=== PATIENT | female | born 1945 | race Caucasian/White ===

== ENCOUNTER 2017-09-03 09:37 | Emergency (ER) | payer OTHER ==
[~2017-09-03] VITALS: Ht 170.2 cm; Wt 73.5 kg
[~2017-09-03 09:37] MED LIST: AMLO2.5T PO; FLUT1INH INH; LEVO-86 PO; LOSA50TA PO; MECL12.574 PO; OMEP40CA2 PO; ONDA8TAB7 PO; SUMA25TA2 PO; TIZA2TAB PO
[2017-09-03 09:41] VITALS: BP 109/65; PULSE 104; RESP 20; TEMP 97.7; O2SAT 97
[2017-09-03 10:07] VITALS: BP 130/72; PULSE 99; RESP 20; O2SAT 96
[2017-09-03] MEDS ORDERED: SODIUM CHLOR 0.9% 1000 ML INJ 1,000 ML IV ONE (10:45)
--- NOTE | 2017-09-03 10:51 | PD ---
HPI Chief Complaint: Abnormal Results Time Seen by Provider: 10:25 Travel History International Travel<30 days: No Contact w/Intl Traveler<30days: No Traveled to known affect area: No History of Present Illness HPI This patient woke up this morning feeling like "she was in a trance." She felt a bit confused. It has improved. She takes no sedating medication. She is getting chemotherapy for pancreatic carcinoma. There is no known brain metastases. She denies headache. No fever. She went to the oncologist office today and received a shot to help her white count which has been low after chemo. The nurse reported her blood pressure was 88/62 and told her to go to the hospital. Patient has a blood pressure 130/72 on arrival here. No alleviating factors. No exacerbating factors. Duration 1 day PFSH Past Medical History Arthritis: Yes Asthma: No Autoimmune Disease: No Blood Disorders: No Anxiety: Yes Depression: No Heart Rhythm Problems: No Cancer: No Cardiovascular Problems: Yes (htn on meds) High Cholesterol: No Chemotherapy: Yes (PANCREATIC) Chest Pain: No Congestive Heart Failure: No COPD: Yes Cerebrovascular Accident: No Diabetes: No Diminished Hearing: No Diverticulitis: Yes Deep Vein Thrombosis: Yes (RIGHT AXILLARY BLOOD CLOT) Endocrine: Yes (GRAVES DISEASE) Gastrointestinal Disorders: Yes (HX IBS, ULCERS, REFLUX, GERD) GERD: Yes (WITH HX OF IBS) Genitourinary: No Headaches: Yes Hepatitis: No Hiatal Hernia: Yes Hypertension: Yes Immune Disorder: No Implanted Vascular Access Dvce: Yes (RIGHT CHEST WALL) Kidney Stones: No Medical other: Yes (ESOPHAGEAL DILITATION FOR STRICTURE) Musculoskeletal: Yes (NECK AND BACK) Neurologic: Yes (SPINAL FUSION, NEUROPATHY, NEURO MODULATOR IMPLANT) Reproductive: Yes ( POSS FIBROID TUMORS AND RIGHT OVARIAN CYST) Respiratory: Yes (copd) Migraines: Yes Radiation Therapy: No Renal Failure: No Sickle Cell Disease: No Sleep Apnea: No Thyroid Disease: Yes Ulcer: Yes (HX OF STOMACH ULCERS) Tetanus Vaccination: > 5 Years Influenza Vaccination: Yes ?: Not LMP: tubal Menopausal: Yes Ovarian Cysts: Yes Tubal Ligation: Yes Past Surgical History Abdominal Surgery: Yes (CHOLECYSTECTOMY, APPENDECTOMY) AICD: No Appendectomy: Yes Arteriovenous Shunt: No Body Medical Devices: LUMBAR SPINE SCREWS AND RODS, NEUROMODULATOR IMPLANT Cardiac Surgery: No Cholecystectomy: Yes Ear Surgery: No Endocrine Surgery: No Eye Surgery: Yes (DECOMPRESSION SURGERY R EYE, STRABISMUS SURGERY X 3) Genitourinary Surgery: Yes (3 polyps removed september 2013) Gynecologic Surgery: Yes Insulin Pump: No Joint Replacement: Yes (RIGHT HIP/RIGHT KNEE) Oral Surgery: Yes (TONSILLECTOMY) Pacemaker: No Thoracic Surgery: No Tonsillectomy: Yes Other Surgery: Yes (RIGHT SHOULDER, SPINE-FUSION) Social History Alcohol Use: No Tobacco Use: No (QUIT 2004. SMOKED 1 PACK CIGS A DAY) Substance Use: No Allergies-Medications (Allergen,Severity, Reaction): Coded Allergies: adhesive (Verified Allergy, Severe, RASH, 09/03/17) codeine (Verified Allergy, Severe, VIOLENT HEADACHE; NAUSEA & VOMITTING, ) STATES ON 07/15/13, "ALL PAIN MEDS EXCEPT MORPHINE CAUSE SEVERE NAUSEA AND VOMITING" hydrocodone (Verified Allergy, Unknown, NAUSEA, DIZZY, WEAKNESS, 09/03/17) tramadol (Verified Allergy, Unknown, HEADACHE, NAUSEA, 09/03/17) Reported Meds & Prescriptions Reported Meds & Active Scripts Active Reported Tizanidine (Tizanidine HCl) 2 Mg Tab 2 Mg PO TID PRN Meclizine (Meclizine HCl) 12.5 Mg Tab 12.5 Mg PO TID PRN Synthroid (Levothyroxine Sodium) 137 Mcg Tab 137 Mcg PO DAILY Omeprazole 40 Mg Cap 40 Mg PO DAILY Losartan (Losartan Potassium) 50 Mg Tab 50 Mg PO BID Amlodipine (Amlodipine Besylate) 2.5 Mg Tab 2.5 Mg PO DAILY Sumatriptan (Sumatriptan Succinate) 25 Mg Tab 25 Mg PO ONCE PRN If a satisfactory response has not been obtained at 2 hours, a second dose may be administered Ondansetron (Ondansetron HCl) 8 Mg Tab 8 Mg PO TID PRN Breo Ellipta Inh (Fluticasone/Vilanterol) 100-25 Mcg/Act Inh 1 Puff INH DAILY Use daily at the same time. Review of Systems General / Constitutional: No: Fever Eyes: No: Visual changes HENT: No: Headaches Cardiovascular: No: Chest Pain or Discomfort Respiratory: No: Shortness of Breath Gastrointestinal: No: Abdominal Pain Genitourinary: No: Dysuria Musculoskeletal: No: Pain Skin: No Rash Neurologic: Positive: Change in Mentation, No: Weakness Psychiatric: No: Depression Endocrine: No: Polydipsia Hematologic/Lymphatic: No: Easy Bruising Physical Exam Narrative GENERAL: Well-nourished, well-developed patient in no apparent distress. SKIN: Focused skin assessment reveals no rash and nodules. Skin is Warm and dry. HEAD: Atraumatic. Normocephalic. EYES: Pupils equal and round. No scleral icterus. No injection or drainage. ENT: No nasal bleeding or discharge. Mucous membranes pink and moist. NECK: Trachea midline. No JVD. No meningeal signs CARDIOVASCULAR: Regular rate and rhythm. No murmur appreciated. RESPIRATORY: No accessory muscle use. Clear to auscultation. Breath sounds equal bilaterally. GASTROINTESTINAL: Abdomen soft, non-tender, nondistended. Hepatic and splenic margins not palpable. MUSCULOSKELETAL: No obvious deformities. No clubbing. No cyanosis. No edema. NEUROLOGICAL: Awake and alert. No obvious cranial nerve deficits. Motor grossly within normal limits. Normal speech. PSYCHIATRIC: Appropriate mood and affect; insight and judgment seem normal Data Data Last Documented VS Vital Signs Date Time Temp Pulse Resp B/P (MAP) Pulse Ox O2 Delivery O2 Flow Rate FiO2 09/03/17 12:00 77 18 147/72 (97) 96 Room Air 09/03/17 09:41 97.7 Orders Orders Iv Access Insert/Monitor (09/03/17 10:40) Complete Blood Count With Diff (09/03/17 10:40) Basic Metabolic Panel (Bmp) (09/03/17 10:40) Urinalysis - C+S If Indicated (09/03/17 10:40) Sodium Chlor 0.9% 1000 Ml Inj (Ns 1000 M (09/03/17 10:45) Ct Brain W/O Iv Contrast(Rout) (09/03/17 ) Electrocardiogram (09/03/17 08:58) Labs Laboratory Tests Test 09/03/17 10:35 09/03/17 13:10 White Blood Count 6.6 TH/MM3 Red Blood Count 4.11 MIL/MM3 Hemoglobin 11.6 GM/DL Hematocrit 34.9 % Mean Corpuscular Volume 85.0 FL Mean Corpuscular Hemoglobin 28.3 PG Mean Corpuscular Hemoglobin Concent 33.3 % Red Cell Distribution Width 14.6 % Platelet Count 333 TH/MM3 Mean Platelet Volume 8.5 FL CBC Comment AUTO DIFF Differential Total Cells Counted 100 Neutrophils % (Manual) 3 % Band Neutrophils % 13 % Lymphocytes % 40 % Monocytes % 32 % Eosinophils % 3 % Neutrophils # (Manual) 1.6 TH/MM3 Metamyelocytes 6 % Myelocytes 1 % Promyelocytes 1 % Nucleated Red Blood Cells 2 /100 WBC Differential Comment FINAL DIFF MANUAL Blastocytes 1 % Toxic Granulation 2+ Platelet Estimate NORMAL Platelet Morphology Comment NORMAL Blood Urea Nitrogen 12 MG/DL Creatinine 0.83 MG/DL Random Glucose 133 MG/DL Calcium Level 9.2 MG/DL Sodium Level 138 MEQ/L Potassium Level 3.3 MEQ/L Chloride Level 105 MEQ/L Carbon Dioxide Level 19.8 MEQ/L Anion Gap 13 MEQ/L Estimat Glomerular Filtration Rate 67 ML/MIN Urine Color YELLOW Urine Turbidity CLEAR Urine pH 6.5 Urine Specific [place] 1.009 Urine Protein NEG mg/dL Urine Glucose (UA) NEG mg/dL Urine Ketones NEG mg/dL Urine Occult Blood NEG Urine Nitrite NEG Urine Bilirubin NEG Urine Urobilinogen LESS THAN 2.0 MG/DL Urine Leukocyte Esterase NEG Urine WBC 2 /hpf Urine Squamous Epithelial Cells 4 /hpf Microscopic Urinalysis Comment CULT NOT INDICATED MDM Medical Decision Making Medical Screen Exam Complete: Yes Emergency Medical Condition: Yes Medical Record Reviewed: Yes Differential Diagnosis Dehydration, sepsis, chemotherapy side effect Narrative Course I have reviewed the patient's electronic medical record. IV placed and labs sent I gave her a liter of normal saline IV Brain CT is normal She looks clinically well with normal vital signs and normal neurologic exam. She does not seem confused Her urine is clean and labs reasonably normal. Her white cell count is now normal at 6.6 thousand On recheck she looks clinically well. She wants to go home. Symptoms have resolved Diagnosis Primary Impression: Altered mental status Qualified Codes: R40.0 - Somnolence Additional Impression: Primary pancreatic cancer Additional Instructions: The patient was advised to follow up with their physician and return if they worsen. Med/Other Pt SpecificInfo: Other Disposition: 01 DISCHARGE HOME Condition: Stable Fernando Rolon MD Sep 03, 2017 10:51
[2017-09-03 11:13] LABS: HEMATOCRIT 34.9 % (35.0-46.0); HEMOGLOBIN 11.6 GM/DL (11.6-15.3); MEAN CORPUSCULAR HEMOGLOBIN 28.3 PG (27.0-34.0); MEAN CORPUSCULAR HGB CONC 33.3 % (32.0-36.0); MEAN PLATELET VOLUME 8.5 FL (7.0-11.0); PLATELET COUNT 333 TH/MM3 (150-450); RED BLOOD COUNT 4.11 MIL/MM3 (4.00-5.30); RED CELL DISTRIBUTION WIDTH 14.6 % (11.6-17.2); WHITE BLOOD COUNT 6.6 TH/MM3 (4.0-11.0)
--- NOTE | 2017-09-03 11:25 | RADRPT ---
EXAM DATE: 09/03/2017 10:58 AM EDT AGE/SEX: 72 years / Female INDICATIONS: Altered mental status. Shortness of breath. Weakness after chemotherapy treatment twent y minutes ago. CLINICAL DATA: This is the patient's initial encounter. Patient reports that signs and symptoms have been present for 1 day and indicates a pain score of 0/10. MEDICAL/SURGICAL HISTORY: Carcinoma, pancreas. Hypertension. Chronic obstructive pulmonary diseas e. Emphysema. Neuropathy. Tubal ligation. Neuro modular implant. RADIATION DOSE: 34.65 CTDI (mGy) COMPARISON: [facility], CT BRAIN W/O CONTRAST, 03/30/2016. . TECHNIQUE: CT of the head without contrast. Using automated exposure control and adjustment of the mA and/or kV according to patient size, radiation dose was kept as low as reasonably achievable to ob tain optimal diagnostic quality images. FINDINGS: Cerebrum: Periventricular low attenuation change involving both cerebral hemispheres is stable from the prior study. Small chronic lacunar infarction involving the left basal ganglia. The ventricles ar e normal for age. No evidence of midline shift, mass lesion, hemorrhage or acute infarction. No ext raaxial fluid collections are seen. Posterior Fossa: The cerebellum and brainstem are intact. The 4th ventricle is midline. The cerebe llopontine angle is unremarkable. Extracranial: The visualized portion of the orbits is intact. Skull: The calvaria is intact. No evidence of skull fracture. CONCLUSION: 1. No acute intracranial abnormality. 2. Chronic small vessel ischemic change. Electronically signed by: Khadar Matthews MD 09/03/2017 11:24 AM EDT
[2017-09-03 11:28] LABS: BICARBONATE 19.8 MEQ/L (21.0-32.0); CALCIUM 9.2 MG/DL (8.5-10.1); CREATININE 0.83 MG/DL (0.50-1.00)
[2017-09-03 11:55] LABS: BANDS 13 % (0-6); BLASTS 1 % (0-0); CORRECTED NUCLEATED RBC 2 /100 WBC (0-0); LYMPHOCYTES 40 % (9-44); METAMYELOCYTES 6 % (0-1); MONOCYTES 32 % (0-8); MYELOCYTES 1 % (0-0); NEUTROPHIL # MANUAL DIFF 1.6 TH/MM3 (1.8-7.7); NUCLEATED RED BLOOD CELL 2 (0-0); POLYS (SEG NEUTROPHILS) 3 % (16-70); PROMYELOCYTES 1 % (0-0)
[2017-09-03 11:57] LABS: TOXIC GRANULATION 2+ (NORMAL)
[2017-09-03 12:00] VITALS: BP 147/72; PULSE 77; RESP 18; O2SAT 96
[2017-09-03 13:28] LABS: BILIRUBIN, URINE NEG (NEG); BLOOD, URINE NEG (NEG); GLUCOSE,URINE NEG (NEG); KETONE, URINE NEG (NEG); NITRITE,URINE NEG (NEG); PH, URINE 6.5 (5.0-8.5); SQUAMOUS EPITHELIAL CELL URINE 4 /hpf (0-5); URINE COLOR YELLOW (YELLW/STRAW); URINE LEUKOCYTE ESTERASE NEG (NEG)
[2017-09-03 14:00] VITALS: BP 145/70; PULSE 76; RESP 17; O2SAT 96
[2017-09-03 15:30] VITALS: BP 143/77; PULSE 76; RESP 17; O2SAT 96
--- NOTE | 2017-09-03 18:21 | EKG ---
Date Performed: 09/03/2017 Time Performed: 08:58:15 PTAGE: 72 years EKG: Sinus rhythm NORMAL ECG PREVIOUS TRACING : 03/14/2015 09.01 Since the previous tracing, no significant change noted DOCTOR: Kaylyn Grier Interpretating Date/Time 09/03/2017 18:19:59
== END 2017-09-03 15:54 | disposition home or self-care (01) ==
LOC: NEPE 09:37
DX: C25.9 Malignant neoplasm of pancreas, unspecified (principal); R40.0 Somnolence; I10 Essential (primary) hypertension; E05.00 Thyrotoxicosis with diffuse goiter without thyrotoxic crisis or storm; K21.9 Gastro-esophageal reflux disease without esophagitis; Z87.891 Personal history of nicotine dependence
CPT/HCPCS: 70450; 80048; 81001; 85007; 85027; 93005; 96360; 99285; J7030

== ENCOUNTER 2017-09-21 21:54 | Inpatient (IN) | payer OTHER, MEDICARE ==
[~2017-09-21] VITALS: Ht 170.2 cm; Wt 72.2 kg
[2017-09-21 21:59] VITALS: BP 129/68; PULSE 97; RESP 20; TEMP 98.9; O2SAT 94
[2017-09-21 22:15] VITALS: RESP 20; O2SAT 93
[2017-09-21] MEDS ORDERED: SODIUM CHLORID 0.9% 500 ML INJ 500 ML IV ONE ×2 (22:15→23:45)
[2017-09-21] MEDS ORDERED: MORPHINE SULFATE 4 MG/ML INJ IV PUSH ONE (22:15)
[2017-09-21] MEDS ORDERED: HYDR-3516 PO (22:15)
[2017-09-21] MEDS ORDERED: METOCLOPRAMIDE HCL 10 MG/2 ML VIAL IV PUSH ONE (22:15)
[2017-09-21] MEDS ORDERED: APIX2.5T PO (22:15)
--- NOTE | 2017-09-21 22:20 | PD ---
HPI Chief Complaint: Abdominal Pain Time Seen by Provider: 22:00 Travel History International Travel<30 days: No Contact w/Intl Traveler<30days: No Traveled to known affect area: No History of Present Illness HPI The patient is a 72 year old female who presents to the [facility] emergency department with a history of abdominal pain that began yesterday. Patient reports that she has a baseline level of generalized abdominal pain that she deals with on a chronic basis related to a diagnosis of adenocarcinoma of the pancreas. She is currently on chemotherapy under the care of Dr. Tolentino for this. She reports that she last received chemotherapy last week. She reports that this abdominal pain is different and has been coming and going since yesterday. She reports that it is sharp in character. She reports that when it occurs it is a 9 out of 10 in severity. She reports that it starts in the midepigastric area and radiates all the way down the center. She reports that she last moved her bowels 4-5 days ago. She reports that she has had a diminished appetite for the last 2 weeks which seems to be affecting her ability to move her bowels. She reports that with this abdominal pain she has had nausea and vomiting 3-4 times today. She denies having any known fevers. She denies having any dysuria, urinary frequency, or new urinary urgency. She denies having any blood in her emesis or blood in her stool. On review of systems otherwise, the patient denies having any cough, congestion, neck pain, chest pain, shortness of breath, or neurologic symptoms. [facility] Past Medical History Narrative Medical The patient's past medical history is significant for pancreatic cancer, COPD, history of diverticulitis, acid reflux, history of Graves' disease status post ablation, hemorrhoids, hypertension, hypothyroid disorder, migraine headaches, skin cancer, history of right upper extremity DVT. Arthritis: Yes Asthma: No Autoimmune Disease: No Blood Disorders: No Anxiety: Yes Depression: No Heart Rhythm Problems: No Cancer: No Cardiovascular Problems: Yes (htn on meds) High Cholesterol: No Chemotherapy: Yes (PANCREATIC) Chest Pain: No Congestive Heart Failure: No COPD: Yes Cerebrovascular Accident: No Diabetes: No Diminished Hearing: No Diverticulitis: Yes Deep Vein Thrombosis: Yes (RIGHT AXILLARY BLOOD CLOT) Endocrine: Yes (GRAVES DISEASE) Gastrointestinal Disorders: Yes (HX IBS, ULCERS, REFLUX, GERD) GERD: Yes (WITH HX OF IBS) Genitourinary: No Headaches: Yes Hepatitis: No Hiatal Hernia: Yes Hypertension: Yes Immune Disorder: No Implanted Vascular Access Dvce: Yes (RIGHT CHEST WALL) Kidney Stones: No Medical other: Yes (ESOPHAGEAL DILITATION FOR STRICTURE) Musculoskeletal: Yes (NECK AND BACK) Neurologic: Yes (SPINAL FUSION, NEUROPATHY, NEURO MODULATOR IMPLANT) Reproductive: Yes ( POSS FIBROID TUMORS AND RIGHT OVARIAN CYST) Respiratory: Yes (copd) Migraines: Yes Radiation Therapy: No Renal Failure: No Sickle Cell Disease: No Sleep Apnea: No Thyroid Disease: Yes Ulcer: Yes (HX OF STOMACH ULCERS) ?: Not Menopausal: Yes Ovarian Cysts: Yes Tubal Ligation: Yes Past Surgical History Narrative Surgical The patient's past surgical history is significant for lumbar spine neurostimulator placement, right hip arthroplasty, right-sided total knee arthroplasty, tonsillectomy, endoscopy, ERCP with metal stent placement of the common bile duct, history of lumbar vertebral body fusion, cholecystectomy, appendectomy Abdominal Surgery: Yes (CHOLECYSTECTOMY, APPENDECTOMY) AICD: No Appendectomy: Yes Arteriovenous Shunt: No Body Medical Devices: LUMBAR SPINE SCREWS AND RODS, NEUROMODULATOR IMPLANT Cardiac Surgery: No Cholecystectomy: Yes Ear Surgery: No Endocrine Surgery: No Eye Surgery: Yes (DECOMPRESSION SURGERY R EYE, STRABISMUS SURGERY X 3) Genitourinary Surgery: Yes (3 polyps removed september 2013) Gynecologic Surgery: Yes Insulin Pump: No Joint Replacement: Yes (RIGHT HIP/RIGHT KNEE) Oral Surgery: Yes (TONSILLECTOMY) Pacemaker: No Thoracic Surgery: No Tonsillectomy: Yes Other Surgery: Yes (RIGHT SHOULDER, SPINE-FUSION) Social History Alcohol Use: No Tobacco Use: No (QUIT 2004. SMOKED 1 PACK CIGS A DAY) Substance Use: No Allergies-Medications (Allergen,Severity, Reaction): Coded Allergies: adhesive (Verified Allergy, Severe, RASH, 09/21/17) codeine (Verified Allergy, Severe, VIOLENT HEADACHE; NAUSEA & VOMITTING, ) STATES ON 07/15/13, "ALL PAIN MEDS EXCEPT MORPHINE CAUSE SEVERE NAUSEA AND VOMITING" hydrocodone (Verified Allergy, Unknown, NAUSEA, DIZZY, WEAKNESS, 09/21/17) tramadol (Verified Allergy, Unknown, HEADACHE, NAUSEA, 09/21/17) Reported Meds & Prescriptions Reported Meds & Active Scripts Active Reported Hydrocodone-Acetaminophen 5-325 mg Tab 1 Tab PO Q4H PRN Eliquis (Apixaban) 2.5 Mg Tab 2.5 Mg PO BID Tizanidine (Tizanidine HCl) 2 Mg Tab 2 Mg PO TID PRN Meclizine (Meclizine HCl) 12.5 Mg Tab 12.5 Mg PO TID PRN Synthroid (Levothyroxine Sodium) 137 Mcg Tab 137 Mcg PO DAILY Omeprazole 40 Mg Cap 40 Mg PO DAILY Losartan (Losartan Potassium) 50 Mg Tab 50 Mg PO BID Amlodipine (Amlodipine Besylate) 2.5 Mg Tab 2.5 Mg PO DAILY Sumatriptan (Sumatriptan Succinate) 25 Mg Tab 25 Mg PO ONCE PRN If a satisfactory response has not been obtained at 2 hours, a second dose may be administered Ondansetron (Ondansetron HCl) 8 Mg Tab 8 Mg PO TID PRN Breo Ellipta Inh (Fluticasone/Vilanterol) 100-25 Mcg/Act Inh 1 Puff INH DAILY Use daily at the same time. Review of Systems Except as stated in HPI: all other systems reviewed are Neg General / Constitutional: No: Fever Eyes: No: Visual changes HENT: No: Headaches Cardiovascular: No: Chest Pain or Discomfort Respiratory: No: Shortness of Breath Gastrointestinal: Positive: Nausea, Vomiting, Abdominal Pain, Constipation, Changes in Bowel Habits, Loss of Appetite, No: Diarrhea, Hematemesis, Hematochezia, Indigestion Genitourinary: No: Dysuria Musculoskeletal: No: Pain Skin: No Rash Neurologic: No: Weakness, Focal Abnormalities, Change in Mentation, Slurred Speech, Sensory Disturbance Psychiatric: No: Depression Endocrine: No: Polydipsia Hematologic/Lymphatic: No: Easy Bruising Physical Exam Narrative General: The patient is a well-developed well-nourished female in no acute distress, reportedly the pain resolved just prior to arrival. Head and Neck exam: Head is normocephalic atraumatic. Eyes: EOMI, pupils are equal round and reactive to light. Nose: Midline septum with pink mucous membranes Mouth: Dentition unremarkable. Moist mucus membranes. Posterior oropharynx is not erythematous. No tonsillar hypertrophy. Uvula midline. Airway patent. Neck: No palpable lymphadenopathy. No nuchal rigidity. No thyromegaly. Cardiovascular: Regular rate and rhythm without murmurs, gallops, or rubs. No pulse deficit to the extremities on simultaneous auscultation and palpation of her radial artery. Lungs: Clear to auscultation bilaterally. No wheezes, rhonchi, or rales. Abdomen: Soft, with generalized tenderness on palpation in all 4 quadrants of the abdomen. Normal bowel sounds are audible. No guarding, rebound, or rigidity. No tenderness on palpation of McBurney's point. Extremities: No clubbing, cyanosis, or edema. 2+ pulses in all 4 extremities. No calf tenderness on palpation. Back: No spinous process tenderness to palpation. No costovertebral angle tenderness to palpation. Neurologic Exam: Grossly nonfocal. Skin Exam: No rash noted. Intact skin that is warm and dry. Data Data Last Documented VS Vital Signs Date Time Temp Pulse Resp B/P (MAP) Pulse Ox O2 Delivery O2 Flow Rate FiO2 09/21/17 22:36 20 95 Nasal Cannula 2.00 09/21/17 21:59 98.9 97 129/68 (88) Orders Orders Electrocardiogram (09/21/17 22:10) Complete Blood Count With Diff (09/21/17 22:10) Comprehensive Metabolic Panel (09/21/17 22:10) Creatine Kinase (Cpk) (09/21/17 22:10) Ckmb (Isoenzyme) Profile (09/21/17 22:10) Troponin I (09/21/17 22:10) B-Type Natriuretic Peptide (09/21/17 22:10) Prothrombin Time / Inr (Pt) (09/21/17 22:10) Act Partial Throm Time (Ptt) (09/21/17 22:10) Lipase (09/21/17 22:10) Urinalysis - C+S If Indicated (09/21/17 22:10) Magnesium (Mg) (09/21/17 22:10) Chest, Single Ap (09/21/17 22:10) Ct Abd/Pel W Iv Contrast(Rout) (09/21/17 22:10) Iv Access Insert/Monitor (09/21/17 22:10) Ecg Monitoring (09/21/17 22:10) Oximetry (09/21/17 22:10) Lactic Acid (09/21/17 22:10) Sodium Chlorid 0.9% 500 Ml Inj (Ns 500 M (09/21/17 22:15) Morphine Inj (Morphine Inj) (09/21/17 22:15) Metoclopramide Inj (Reglan Inj) (09/21/17 22:15) Potassium Chloride Eff (K-Lyte Cl Eff) (09/21/17 23:45) Sodium Chlorid 0.9% 500 Ml Inj (Ns 500 M (09/21/17 23:45) Iohexol 350 Inj (Omnipaque 350 Inj) (09/21/17 23:55) Blood Culture (09/22/17 00:09) Piperacil-Tazo 3.375 Gm Premix (Zosyn 3. (09/22/17 00:15) Umm-Gastric Tube Insert/Mon (09/22/17 00:44) Admit Order (Ed Use Only) (09/22/17 00:50) Labs Laboratory Tests Test 09/21/17 22:15 White Blood Count 18.7 TH/MM3 Red Blood Count 4.09 MIL/MM3 Hemoglobin 11.0 GM/DL Hematocrit 34.4 % Mean Corpuscular Volume 84.0 FL Mean Corpuscular Hemoglobin 26.8 PG Mean Corpuscular Hemoglobin Concent 31.9 % Red Cell Distribution Width 15.6 % Platelet Count 160 TH/MM3 Mean Platelet Volume 8.9 FL CBC Comment AUTO DIFF Differential Total Cells Counted 100 Neutrophils % (Manual) 20 % Band Neutrophils % 34 % Lymphocytes % 12 % Monocytes % 15 % Neutrophils # (Manual) 13.7 TH/MM3 Metamyelocytes 9 % Myelocytes 8 % Promyelocytes 2 % Nucleated Red Blood Cells 3 /100 WBC Differential Comment FINAL DIFF MANUAL Toxic Granulation 2+ Dohle Bodies PRESENT Platelet Estimate NORMAL Platelet Morphology Comment ENLARGED Prothrombin Time 12.3 SEC Prothromb Time International Ratio 1.2 RATIO Activated Partial Thromboplast Time 27.5 SEC Blood Urea Nitrogen 17 MG/DL Creatinine 0.67 MG/DL Random Glucose 115 MG/DL Total Protein 6.6 GM/DL Albumin 3.2 GM/DL Calcium Level 8.1 MG/DL Magnesium Level 2.2 MG/DL Alkaline Phosphatase 218 U/L Aspartate Amino Transf (AST/SGOT) 130 U/L Alanine Aminotransferase (ALT/SGPT) 78 U/L Total Bilirubin 1.0 MG/DL Sodium Level 138 MEQ/L Potassium Level 2.8 MEQ/L Chloride Level 100 MEQ/L Carbon Dioxide Level 20.1 MEQ/L Anion Gap 18 MEQ/L Estimat Glomerular Filtration Rate 86 ML/MIN Lactic Acid Level 1.6 mmol/L Total Creatine Kinase 24 U/L Troponin I LESS THAN 0.02 NG/ML B-Type Natriuretic Peptide 57 PG/ML Lipase 35 U/L MDM Medical Decision Making Medical Screen Exam Complete: Yes Emergency Medical Condition: Yes Medical Record Reviewed: Yes Differential Diagnosis Bowel obstruction, versus pancreatitis, versus ischemic bowel, versus diverticulitis Narrative Course During the course of the patient's emergency department visit, the patient's history, examination, and differential diagnosis were reviewed with the patient. The patient was placed on a site monitor with oximetry and frequent blood pressure monitoring. The patient had IV access obtained and blood work sent for analysis. The patient had an EKG done on arrival. The patient's EKG shows a heart rate of 98, QRS duration is 101 ms. QTc 426 ms. The patient has what appears to be minimal ST segment depression noted in leads V4, V5, V6, lead II, no acute ST segment elevation is noted. The patient was initially provided normal saline at 500 mL bolus 1, Reglan 5 mg IV, morphine 2 mg IV. Prior to arrival by ambulance services, the patient was given normal saline at 500 mL bolus and Zofran 4 mg IV. The patient's laboratory studies were reviewed and remarkable for an elevated white blood cell count at 18.7. Blood cultures 2 were sent and the patient was started on broad-spectrum antibiotic. 09/21/17 22:15 Total Protein 6.6, Albumin 3.2 L, Calcium Level 8.1 L, Magnesium Level 2.2, Alkaline Phosphatase 218 H, Aspartate Amino Transf (AST/SGOT) 130 H, Alanine Aminotransferase (ALT/SGPT) 78 H, Total Bilirubin 1.0 Radiology studies were reviewed and remarkable for Last Impressions Chest X-Ray 09/21/172209 Signed Impressions: CONCLUSION: No active disease. Penugj-w-[id number] in superior vena cava. No free air identified under the diaphragms. Abdomen/Pelvis CT 09/21/172209 Signed Impressions: CONCLUSION: 1. Dilatation of the proximal and mid small bowel with a suspected transition point in the right lower quadrant/pelvis concerning for small bowel obstruction . 2. Biliary stent in place. There is pneumobilia. 3. Dilatation of pancreatic duct with atrophy of the pancreas. 4. Hepatic steatosis. Given the patient's evidence of small bowel obstruction, the patient will have an NG tube placed to low intermittent gravity. The patient will be admitted to the hospital. The patient's results were discussed with the patient, including the plan of care. I explained that further testing and/ or monitoring is indicated based on the patient's history, examination, and/ or laboratory findings. Therefore, I recommended admission for additional evaluation. The patient expressed understanding and was agreeable with this plan. The patient was admitted to the hospital in stable condition and sent to a bed under the care of the [facility] service. Physician Communication Physician Communication The patient's case including history, pertinent physical examination findings, and laboratory studies were discussed with Dr. Finley. It was agreed that the patient would be admitted to the [facility] service. Diagnosis Primary Impression: SBO (small bowel obstruction) Admitting Information Admitting Physician Requests: Admit Aria Robb MD Sep 21, 2017 22:20
[2017-09-21 22:33] LABS: HEMATOCRIT 34.4 % (35.0-46.0); MEAN CORPUSCULAR HEMOGLOBIN 26.8 PG (27.0-34.0); MEAN CORPUSCULAR HGB CONC 31.9 % (32.0-36.0); MEAN PLATELET VOLUME 8.9 FL (7.0-11.0); PLATELET COUNT 160 TH/MM3 (150-450); RED BLOOD COUNT 4.09 MIL/MM3 (4.00-5.30); RED CELL DISTRIBUTION WIDTH 15.6 % (11.6-17.2); WHITE BLOOD COUNT 18.7 TH/MM3 (4.0-11.0)
[2017-09-21 22:36] VITALS: RESP 20; O2SAT 95
--- NOTE | 2017-09-21 22:47 | RADRPT ---
EXAM DATE: 09/21/2017 10:28 PM EDT AGE/SEX: 72 years / Female INDICATIONS: Evaluate for free air CLINICAL DATA: This is the patient's initial encounter. Patient reports that signs and symptoms have been present for 3 days and indicates a pain score of 4/10. MEDICAL/SURGICAL HISTORY: . Carcinoma, pancreas. Hypertension. Chronic obstructive pulmonary di sease. Emphysema. Neuropathy. . Tubal ligation. Neuro modular implant COMPARISON: [facility], CHEST SINGLE AP, 03/14/2015. . FINDINGS: A single AP view of the chest demonstrates the lungs to be symmetrically aerated without evidence of mass, infiltrate or effusion. The cardiomediastinal contours are unremarkable. Osseous structures a re intact. CONCLUSION: No active disease. [id number] in superior vena cava. No free air identified under the diaphragms. Electronically signed by: Leonides Otoole MD 09/21/2017 10:46 PM EDT
[2017-09-21 22:50] LABS: INTERNATIONAL NORMALIZED RATIO 1.2 RATIO; PROTHROMBIN TIME - PATIENT 12.3 SEC (9.8-11.6)
[2017-09-21 23:07] LABS: ALBUMIN 3.2 GM/DL (3.4-5.0); ALKALINE PHOSPHATASE 218 U/L (45-117); ALT (GPT) 78 U/L (10-53); AST (GOT) 130 U/L (15-37); BICARBONATE 20.1 MEQ/L (21.0-32.0); BLOOD UREA NITROGEN 17 MG/DL (7-18); CALCIUM 8.1 MG/DL (8.5-10.1); CHLORIDE 100 MEQ/L (98-107); CREATININE 0.67 MG/DL (0.50-1.00); GLOMERULAR FILTRATION RATE 86 ML/MIN (>89); GLUCOSE,RANDOM 115 MG/DL (74-106); MAGNESIUM 2.2 MG/DL (1.5-2.5); SODIUM (NA) 138 MEQ/L (136-145); TOTAL PROTEIN 6.6 GM/DL (6.4-8.2); TROPONIN I LESS THAN 0.02 NG/ML (0.02-0.05)
[2017-09-21 23:40] LABS: BANDS 34 % (0-6); CORRECTED NUCLEATED RBC 3 /100 WBC (0-0); LYMPHOCYTES 12 % (9-44); METAMYELOCYTES 9 % (0-1); MONOCYTES 15 % (0-8); MYELOCYTES 8 % (0-0); NEUTROPHIL # MANUAL DIFF 13.7 TH/MM3 (1.8-7.7); NUCLEATED RED BLOOD CELL 3 (0-0); POLYS (SEG NEUTROPHILS) 20 % (16-70); PROMYELOCYTES 2 % (0-0)
[2017-09-21 23:41] LABS: TOXIC GRANULATION 2+ (NORMAL)
[2017-09-21 23:42] LABS: DOHLE BODIES PRESENT (NONE SEEN)
[2017-09-21] MEDS ORDERED: POTASSIUM CHLORIDE 25 MEQ EFFERVESCENT TAB PO ONE (23:45)
[2017-09-21] MEDS ORDERED: IOHEXOL 350 MG/ML 10 ML VIAL (for RAD DIAG) IVCONTRAST ONE (23:55)
[2017-09-22] VITALS (9 sets, daily range): BP systolic 121–174; BP diastolic 70–84; PULSE 66–88; RESP 15–20; TEMP 97.6–98.4; O2SAT 92–98
[2017-09-22] MEDS ORDERED: PIPERACIL-TAZO 3.375 GM PREMIX 50 ML IV ONE (00:15)
--- NOTE | 2017-09-22 00:20 | RADRPT ---
EXAM DATE: 09/22/2017 12:04 AM EDT AGE/SEX: 72 years / Female INDICATIONS: Upper abdominal pain; rule out obstruction. CLINICAL DATA: This is the patient's initial encounter. Patient reports that signs and symptoms have been present for 1 day and indicates a pain score of 7/10. MEDICAL/SURGICAL HISTORY: Carcinoma, pancreas. Irritable bowel syndrome. Gastroesophageal ref lux disease. COPD, Hiatal hernia, Diverticulitis Fusion, lumbar. Appendectomy. Tubal ligation. ORAL CONTRAST: No oral contrast ingested. RADIATION DOSE: 13.85 CTDI (mGy) COMPARISON: [facility], CT ABDOMEN & PELVIS W CONTRAST, 03/14/2015. . TECHNIQUE: Multiple contiguous axial images were obtained through the abdomen and pelvis following b olus infusion of 96 ml Omnipaque 350 (iohexol) nonionic water-soluble contrast as a single exam dos e. No oral contrast ingested. Using automated exposure control and adjustment of the mA and/or kV ac cording to patient size, radiation dose was kept as low as reasonably achievable to obtain optimal di agnostic quality images. DICOM format image data is available electronically for review and comparis on. FINDINGS: Lower Lungs: The visualized lower lungs are clear. Liver: There is diffuse decreased attenuation to the liver. There is pneumobilia. There is a biliary stent in place. Spleen: Homogeneous density without enlargement. Pancreas: Pancreatic duct is dilated measuring 7 mm. There is atrophy of the pancreas. Kidneys: Normal in size and shape. No evidence of mass or hydronephrosis. Adrenal Glands: Unremarkable. Aorta: Atherosclerotic calcifications are present. No aneurysm is seen. Bowel/Mesentery: There is moderate dilatation of the stomach. There is dilatation of the small bowel measuring up to 3.2 cm. It appears the proximal and mid small bowel are dilated. There is a transiti on point at the pelvis/right lower quadrant. The very distal aspect of the small bowel is decompresse d beyond this point. Colon is not distended. There are scattered diverticula. Abdominal Wall: There is an umbilical hernia with the defect of the abdominal wall measuring 2 cm. T his contains mesenteric fat. Retroperitoneum: No evidence of adenopathy in the retrocrural, para-aortic, or deep pelvic regions. Bladder: Contours are smooth. Reproductive Organs: No abnormal masses or calcifications seen. Inguinal: The inguinal region is unremarkable without evidence of adenopathy. Bony Structures: Spinal leads are seen. There is postoperative hardware in the lower lumbar spine. T here is a right hip prosthesis. CONCLUSION: 1. Dilatation of the proximal and mid small bowel with a suspected transition point in the right low er quadrant/pelvis concerning for small bowel obstruction. 2. Biliary stent in place. There is pneumobilia. 3. Dilatation of pancreatic duct with atrophy of the pancreas. 4. Hepatic steatosis. Electronically signed by: Surjit Martinez MD 09/22/2017 12:19 AM EDT
[2017-09-22] MEDS ORDERED: SODIUM CHLOR 0.9% 1000 ML INJ 1,000 ML IV SCH (00:50)
[2017-09-22] MEDS ORDERED: SENNOSIDES 8.6 MG TAB PO PRN (01:00)
[2017-09-22] MEDS ORDERED: BISACODYL 10 MG SUPP RECTAL PRN (01:00)
[2017-09-22] MEDS ORDERED: MORPHINE SULFATE 4 MG/ML INJ IV PUSH PRN (01:00)
[2017-09-22] MEDS ORDERED: LACTULOSE SYRUP 20 GM/30 ML CUP PO PRN (01:00)
[2017-09-22] MEDS ORDERED: MAGNESIUM HYDROXIDE SUSP 30 ML CUP PO PRN (01:00)
[2017-09-22] MEDS ORDERED: SODIUM CHLORIDE 0.9% FLUSH 10 ML FLUSH IV FLUSH PRN (01:00)
--- NOTE | 2017-09-22 01:10 | HHI.HP ---
[facility] David Hawkins MD Admission Diagnosis Bowel obstruction Diagnoses: (1) SBO (small bowel obstruction) Diagnosis: Principal (2) Pancreatic cancer Diagnosis: Principal (3) Hypokalemia Diagnosis: Principal (4) Leukocytosis Diagnosis: Principal Travel History International Travel<30 Days: No Contact w/Intl Traveler <30 Da: No Traveled to Known Affected Are: No History of Present Illness This is a 72-year-old female with a PMH of Pancreatic CA, COPD, HTN and Hypothyroidism who presented to the ER w/ complaints of abdominal pain, nausea, vomiting and distention x2 days. Following w/ Dr. Tolentino as outpatient, per patient she is currently on Chemo w/ plans for surgical intervention by Dr. Pinon after last cycle. States she has chronic abdominal pain, however pain has been severe x2 days. Constant, cramping, 10/10, non-radiating, associated w/ nausea/vomiting as mentioned. Denies fever or chills. On arrival , BP 129/68, HR 97, O2 sat 94% on RA, Afebrile. WBC 18.7, bands 34%. K+ 2.8. Lactic Acid 1.6. LFTs increase in comparison to previous labs from 09/16/2017. INR 1.2. CT Abdomen/Pelvis dilatation of proximal and mid small bowel with transition point concerning for small bowel obstruction, biliary stent. CXR with no acute findings, [id number]. Persistent nausea/vomiting in ER, pending NGT placement. Discussed plan of care at length with patient in addition to code status, she would like to pursue aggressive treatment and is a Full Code. Review of Systems Except as stated in HPI: all other systems reviewed are Neg ROS: 14 point review of systems otherwise negative. Past Family Social History Past Medical History PMH: Pancreatic CA, COPD, HTN and Hypothyroidism Past Surgical History PAST SURGICAL HISTORY: Cholecystectomy, Appendectomy, Neuromodulator Implant, Lumbar Fusion, Right Shoulder Surgery, Tonsillectomy, [id number]-Blqm, Right Hip/ Knee Replacement Allergies: Coded Allergies: adhesive (Verified Allergy, Severe, RASH, 09/21/17) codeine (Verified Allergy, Severe, VIOLENT HEADACHE; NAUSEA & VOMITTING, ) STATES ON 07/15/13, "ALL PAIN MEDS EXCEPT MORPHINE CAUSE SEVERE NAUSEA AND VOMITING" hydrocodone (Verified Allergy, Unknown, NAUSEA, DIZZY, WEAKNESS, 09/21/17) tramadol (Verified Allergy, Unknown, HEADACHE, NAUSEA, 09/21/17) Family History PAST FAMILY HISTORY: Reviewed. No h/o DM or CAD Social History PAST SOCIAL HISTORY: Negative for alcohol, tobacco or drugs. Physical Exam Vital Signs Vital Signs Date Time Temp Pulse Resp B/P (MAP) Pulse Ox O2 Delivery O2 Flow Rate FiO2 09/21/17 22:36 20 95 Nasal Cannula 2.00 09/21/17 22:15 20 93 Room Air 09/21/17 21:59 98.9 97 20 129/68 (88) 94 Physical Exam PE: GENERAL: Very pleasant elderly white female in no acute distress, persistent nausea and pain HEENT: PERRLA, EOMI. No scleral icterus or conjunctival pallor. No lid lag or facial droop. CARDIOVASCULAR: Regular rate and rhythm. No obvious murmurs to auscultation. No chest tenderness to palpation. RESPIRATORY: No obvious rhonchi or wheezing. Clear to auscultation. Breath sounds equal bilaterally. GASTROINTESTINAL: Abdomen soft, generalized tenderness to palpation, mild distention. BS normal. MUSCULOSKELETAL: Extremities without clubbing, cyanosis, or edema. No obvious deformities. NEUROLOGICAL: Awake, alert and oriented x4. No focal neurologic deficits. Moving both upper and lower extremities spontaneously. Laboratory Laboratory Tests Test 09/21/17 22:15 White Blood Count 18.7 Red Blood Count 4.09 Hemoglobin 11.0 Hematocrit 34.4 Mean Corpuscular Volume 84.0 Mean Corpuscular Hemoglobin 26.8 Mean Corpuscular Hemoglobin Concent 31.9 Red Cell Distribution Width 15.6 Platelet Count 160 Mean Platelet Volume 8.9 CBC Comment AUTO DIFF Differential Total Cells Counted 100 Neutrophils % (Manual) 20 Band Neutrophils % 34 Lymphocytes % 12 Monocytes % 15 Neutrophils # (Manual) 13.7 Metamyelocytes 9 Myelocytes 8 Promyelocytes 2 Nucleated Red Blood Cells 3 Differential Comment FINAL DIFF MANUAL Toxic Granulation 2+ Dohle Bodies PRESENT Platelet Estimate NORMAL Platelet Morphology Comment ENLARGED Prothrombin Time 12.3 Prothromb Time International Ratio 1.2 Activated Partial Thromboplast Time 27.5 Blood Urea Nitrogen 17 Creatinine 0.67 Random Glucose 115 Total Protein 6.6 Albumin 3.2 Calcium Level 8.1 Magnesium Level 2.2 Alkaline Phosphatase 218 Aspartate Amino Transf (AST/SGOT) 130 Alanine Aminotransferase (ALT/SGPT) 78 Total Bilirubin 1.0 Sodium Level 138 Potassium Level 2.8 Chloride Level 100 Carbon Dioxide Level 20.1 Anion Gap 18 Estimat Glomerular Filtration Rate 86 Lactic Acid Level 1.6 Total Creatine Kinase 24 Troponin I LESS THAN 0.02 B-Type Natriuretic Peptide 57 Lipase 35 Date/Time Source Procedure Growth Status 09/22/17 00:15 Blood Peripheral Aerobic Blood Culture Pending Received 09/22/17 00:15 Blood Peripheral Anaerobic Blood Culture Pending Received Result Diagram: 09/21/17221409/21/172214 Zachary VTE Risk Assessment Zachary VTE Risk Assessment: No/Low Risk (score <= 1) Walkerrini Risk Assessment Model Point Value = 1 Point Value = 2 Point Value = 3 Point Value = 5 Age 41-60 Minor surgery BMI > 25 kg/m2 Swollen legs Varicose veins or History of unexplained or recurrent spontaneous Oral contraceptives or hormone replacement Sepsis (< 1 month) Serious lung disease, including pneumonia (< 1 month) Abnormal pulmonary function Acute myocardial infarction Congestive heart failure (< 1 month) History of inflammatory bowel disease Medical patient at bed rest Age 61-74 Arthroscopic surgery Major open surgery (> 45 min) Laparoscopic surgery (> 45 min) Malignancy Confined to bed (> 72 hours) Immobilizing plaster cast Central venous access Age >= 75 History of VTE Family history of VTE Factor V Leiden Prothrombin [id number] Lupus anticoagulant Anticardiolipin antibodies Elevated serum homocysteine Heparin-induced thrombocytopenia Other congenital or acquired thrombophilia Stroke (< 1 month) Elective arthroplasty Hip, pelvis, or leg fracture Acute spinal cord injury (< 1 month) Prophylaxis Regimen Total Risk Factor Score Risk Level Prophylaxis Regimen 0-1 Low Early ambulation 2 Moderate Order ONE of the following: *Sequential Compression Device (SCD) *Heparin 5000 units SQ BID 3-4 Higher Order ONE of the following medications: *Heparin 5000 units SQ TID *Enoxaparin/Lovenox 40 mg SQ daily (WT < 150 kg, CrCl > 30 mL/min) *Enoxaparin/Lovenox 30 mg SQ daily (WT < 150 kg, CrCl > 10-29 mL/min) *Enoxaparin/Lovenox 30 mg SQ BID (WT < 150 kg, CrCl > 30 mL/min) AND/OR *Sequential Compression Device (SCD) 5 or more Highest Order ONE of the following medications: *Heparin 5000 units SQ TID (Preferred with Epidurals) *Enoxaparin/Lovenox 40 mg SQ daily (WT < 150 kg, CrCl > 30 mL/min) *Enoxaparin/Lovenox 30 mg SQ daily (WT < 150 kg, CrCl > 10-29 mL/min) *Enoxaparin/Lovenox 30 mg SQ BID (WT < 150 kg, CrCl > 30 mL/min) AND *Sequential Compression Device (SCD) Assessment and Plan Problem List: (1) SBO (small bowel obstruction) ICD Code: K56.609 - Unspecified intestinal obstruction, unspecified as to partial versus complete obstruction (2) Pancreatic cancer ICD Code: C25.9 - Malignant neoplasm of pancreas, unspecified (3) Hypokalemia ICD Code: E87.6 - Hypokalemia (4) Leukocytosis ICD Code: D72.829 - Elevated white blood cell count, unspecified Assessment and Plan A/P: 1. SBO: acute onset of abdominal pain, nausea/vomiting x2 days. CT Abd/ Pelvis w/ dilatation of proximal/mid small bowel concerning for obstruction, images reviewed by me. +persistent nausea, plan for NGT. NPO, IVF, Consult Gen Sx for further evaluation. Analgesics/antiemetics as needed. 2. Pancreatic CA: Following w/ Dr. Tolentino, currently on chemo, states pending last cycle and has plans for surgical intervention w/ Dr. Pinon. Will consult Dr. Tolentino for further eval. Surgery consult as above. Extensive discussion w/ patient regarding plan of care, pt would like aggressive treatment. There was mention of possible Hospice, however I discussed this with patient and she does not want Hospice at this time. Code status discussed , she is FULL CODE. 3. Hypokalemia: K+ 2.8, s/p replacement in ER, will recheck and replace as needed. 4. Leukocytosis: WBC 18 w/ significant bandemia of 34%, follow up cultures, continue IV Abx, repeat labs in am. 5. DVT Prophylaxis: SCD/Teds 6. Social work for d/c planning as needed. 7. Case discussed w/ ER physician at length, labs/records/imaging reviewed by me. Physician Certification 2 Midnight Certification Type: Admission for Inpatient Services Order for Inpatient Services The services are ordered in accordance with Medicare regulations or non- Medicare payer requirements, as applicable. In the case of services not specified as inpatient-only, they are appropriately provided as inpatient services in accordance with the 2-midnight benchmark. Estimated LOS (days): 2 days is the estimated time the patient will need to remain in the hospital, assuming treatment plan goals are met and no additional complications. Post-Hospital Plan: Not yet determined Ioana Finley MD Sep 22, 2017 01:10
[2017-09-22] MEDS: MORPHINE SULFATE 4 MG/ML INJ IV PUSH PRN ×4 (02:01→21:11)
[2017-09-22] MEDS: CEFEPIME INJ 1,000 MG in SODIUM CHLORIDE 0.9% INJ 100 ML IV SCH ×2 (09:00→21:08)
[2017-09-22] MEDS: DOCUSATE SODIUM 50 MG/SENNA 8.6 MG TAB PO SCH ×2 (09:00→21:00)
[2017-09-22] MEDS: SODIUM CHLORIDE 0.9% FLUSH 10 ML FLUSH IV FLUSH SCH ×2 (09:00→21:08)
--- NOTE | 2017-09-22 09:18 | PD.CONS ---
cc: Angel Pinon MD [facility] Service General Surgery Consult Requested By Dr. Finley Reason for Consult Small bowel obstruction Primary Care Physician David Hawkins MD History of Present Illness This is a 72 year old female with a past medical history of pancreatic cancer currently receiving chemotherapy with Dr. Tolentino, COPD, hypertension and hypothyroidism. The patient came to the ED last night with complaints of abdominal pain, nausea, vomiting and distention for about two days. She denies any sick contacts or recent travel. She has been followed by Dr. Pinon in the office and surgical plans were going to be discussed once she finished chemotherapy. The patient is unsure of her last bowel movement but she continues to have flatus. A CT abdomen/pelvis was obtained which shows dilation of the proximal and mid small bowel with possible transition point. Her WBC is elevated. She is hypokalemic. A General Surgery consultation has been requested. Review of Systems Constitutional: COMPLAINS OF: Change in appetite, DENIES: Fatigue Endocrine: DENIES: Polydipsia, Polyuria, Polyphagia Eyes: DENIES: Diplopia, Eye inflammation Ears, nose, mouth, throat: DENIES: Hearing loss Respiratory: DENIES: Cough, Snoring Cardiovascular: DENIES: Palpitations Gastrointestinal: COMPLAINS OF: Abdominal pain, Nausea, Vomiting Genitourinary: DENIES: Urinary frequency Musculoskeletal: DENIES: Joint pain Integumentary: DENIES: Abnormal pigmentation Hematologic/lymphatic: DENIES: Bruising Immunologic/allergic: DENIES: Eczema Neurologic: DENIES: Headache, Localized weakness Psychiatric: DENIES: Confusion, Mood changes, Depression Past Family Social History Past Medical History Pancreatic cancer currently on chemotherapy COPD Hypertension Hypothyroidism Past Surgical History Laparoscopic cholecystectomy Laparoscopic appendectomy Lumbar fusion Shoulder/Hip/Knee surgeries Tonsillectomy Infusaport placement Reported Medications Tizanidine Eliquis Amlodipine Losartan [place] Sumatriptan Breo Inhaler Mexlizine Zofran Omeprazole Synthroid Allergies: Coded Allergies: adhesive (Verified Allergy, Severe, RASH, 09/21/17) codeine (Verified Allergy, Severe, VIOLENT HEADACHE; NAUSEA & VOMITTING, ) STATES ON 07/15/13, "ALL PAIN MEDS EXCEPT MORPHINE CAUSE SEVERE NAUSEA AND VOMITING" hydrocodone (Verified Allergy, Unknown, NAUSEA, DIZZY, WEAKNESS, 09/21/17) tramadol (Verified Allergy, Unknown, HEADACHE, NAUSEA, 09/21/17) Active Ordered Medications Current Medications Medications (Trade) Dose Ordered Sig/Bert Route Start Time Stop Time Status Last Admin Cefepime HCl 1000 mg/Sodium Chloride 100 ml @ 200 mls/hr Q12H IV 09/22/17 09:00 Sodium Chloride 1,000 ml @ 100 mls/hr Q10H IV 09/22/17 00:50 09/22/17 02:30 (NS Flush) 2 ml UNSCH PRN IV FLUSH 09/22/17 01:00 (NS Flush) 2 ml BID IV FLUSH 09/22/17 09:00 (Reglan Inj) 5 mg Q6H PRN IV PUSH 09/22/17 01:00 (Morphine Inj) 1 mg Q3H PRN IV PUSH 09/22/17 01:00 (Morphine Inj) 2 mg Q3H PRN IV PUSH 09/22/17 01:00 09/22/17 02:01 (Madeline-Colace) 1 tab BID PO 09/22/17 09:00 (Milk Of Magnesia Liq) 30 ml Q12H PRN PO 09/22/17 01:00 (Senokot) 17.2 mg Q12H PRN PO 09/22/17 01:00 (Dulcolax Supp) 10 mg DAILY PRN RECTAL 09/22/17 01:00 (Lactulose Liq) 30 ml DAILY PRN PO 09/22/17 01:00 Family History Non contributory Social History Denies tobacco use Denies ETOH use Denies illicit drug use Physical Exam Vital Signs Vital Signs Date Time Temp Pulse Resp B/P (MAP) Pulse Ox O2 Delivery O2 Flow Rate FiO2 09/22/17 05:37 80 09/22/17 03:00 98.4 77 18 131/74 (93) 93 09/22/17 02:52 09/22/17 02:16 88 20 121/70 (87) 92 Room Air 09/21/17 22:36 20 95 Nasal Cannula 2.00 09/21/17 22:15 20 93 Room Air 09/21/17 21:59 98.9 97 20 129/68 (76) 94 Physical Exam GENERAL: 72 year old female resting in bed in no acute distress. SKIN: Warm and dry. HEAD: Atraumatic. Normocephalic. EYES: Pupils equal and round. No scleral icterus. No injection or drainage. ENT: No nasal bleeding or discharge. Mucous membranes pink and moist. NECK: Trachea midline. CARDIOVASCULAR: Regular rate and rhythm. RESPIRATORY: No accessory muscle use. Clear to auscultation. Breath sounds equal bilaterally. GASTROINTESTINAL: Abdomen soft, non distended. Minimally tender throughout. + BS. MUSCULOSKELETAL: Extremities without clubbing, cyanosis, or edema. No obvious deformities. NEUROLOGICAL: Awake and alert. No obvious cranial nerve deficits. Motor grossly within normal limits. Five out of 5 muscle strength in the arms and legs. Normal speech. PSYCHIATRIC: Appropriate mood and affect; insight and judgment normal. Laboratory Laboratory Tests Test 09/21/17 22:15 White Blood Count 18.7 Red Blood Count 4.09 Hemoglobin 11.0 Hematocrit 34.4 Mean Corpuscular Volume 84.0 Mean Corpuscular Hemoglobin 26.8 Mean Corpuscular Hemoglobin Concent 31.9 Red Cell Distribution Width 15.6 Platelet Count 160 Mean Platelet Volume 8.9 CBC Comment AUTO DIFF Differential Total Cells Counted 100 Neutrophils % (Manual) 20 Band Neutrophils % 34 Lymphocytes % 12 Monocytes % 15 Neutrophils # (Manual) 13.7 Metamyelocytes 9 Myelocytes 8 Promyelocytes 2 Nucleated Red Blood Cells 3 Differential Comment FINAL DIFF MANUAL Toxic Granulation 2+ Dohle Bodies PRESENT Platelet Estimate NORMAL Platelet Morphology Comment ENLARGED Prothrombin Time 12.3 Prothromb Time International Ratio 1.2 Activated Partial Thromboplast Time 27.5 Blood Urea Nitrogen 17 Creatinine 0.67 Random Glucose 115 Total Protein 6.6 Albumin 3.2 Calcium Level 8.1 Magnesium Level 2.2 Alkaline Phosphatase 218 Aspartate Amino Transf (AST/SGOT) 130 Alanine Aminotransferase (ALT/SGPT) 78 Total Bilirubin 1.0 Sodium Level 138 Potassium Level 2.8 Chloride Level 100 Carbon Dioxide Level 20.1 Anion Gap 18 Estimat Glomerular Filtration Rate 86 Lactic Acid Level 1.6 Total Creatine Kinase 24 Troponin I LESS THAN 0.02 B-Type Natriuretic Peptide 57 Lipase 35 Date/Time Source Procedure Growth Status 09/22/17 00:15 Blood Peripheral Aerobic Blood Culture Pending Received 09/22/17 00:15 Blood Peripheral Anaerobic Blood Culture Pending Received Result Diagram: 6/24/18 2215 6/24/18 2215 Imaging Last 48 hours Impressions Chest X-Ray 09/21/172209 Signed Impressions: CONCLUSION: No active disease. [id number] in superior vena cava. No free air identified under the diaphragms. Abdomen/Pelvis CT 09/21/172209 Signed Impressions: CONCLUSION: 1. Dilatation of the proximal and mid small bowel with a suspected transition point in the right lower quadrant/pelvis concerning for small bowel obstruction . 2. Biliary stent in place. There is pneumobilia. 3. Dilatation of pancreatic duct with atrophy of the pancreas. 4. Hepatic steatosis. Assessment and Plan Assessment and Plan 72 year old female with pancreatic cancer on chemotherapy; SBO vs ileus---favor ileus -Okay to clamp NGT and start clears -IVF -Pain control -Replace and monitor electrolytes -Will continue nonoperative treatment at this time -Discussed with Dr. Mondragon -Thank you for this consult Discussed Condition With Dr. Kathrin Eric Attending Statement The exam, history, and the medical decision-making described in the above note were completed with the assistance of the mid-level provider. I reviewed and agree with the findings presented. I attest that I had a [id number] encounter with the patient on the same day, and personally performed and documented my assessment and findings in the medical record. Patient with pancreatic Adenocarcinoma, colitis/enteritis, ? cause, chemo related vs cdiff vs infectious likely NOT SBO due to 3 weeks of diarrhea per patient continue hydration abdominal exam non-surgical will follow Jennie Small/First Augie PINEDA Sep 22, 2017 09:18 Angel Pinon MD Sep 26, 2017 09:01
--- NOTE | 2017-09-22 11:54 | HHI.PR ---
Subjective Remarks Having multiple loose stools at this time. No nausea or vomiting. No fevers or chills. No significant abdominal pain. Objective Vitals Vital Signs Date Time Temp Pulse Resp B/P (MAP) Pulse Ox O2 Delivery O2 Flow Rate FiO2 09/22/17 05:37 80 09/22/17 03:00 98.4 77 18 131/74 (93) 93 09/22/17 02:52 09/22/17 02:16 88 20 121/70 (87) 92 Room Air 09/21/17 22:36 20 95 Nasal Cannula 2.00 09/21/17 22:15 20 93 Room Air 09/21/17 21:59 98.9 97 20 129/68 (88) 94 I/O 09/21/17 09/21/17 09/21/17 09/22/17 09/22/17 09/22/17 07:00 15:00 23:00 07:00 15:00 23:00 Intake Total 1050 ml Output Total 700 ml 50 ml Balance 350 ml -50 ml Intake Oral 0 ml IV Total 1050 ml Output Stool Total 50 ml Gastric Drainage Total 700 ml # Voids 0 Result Diagram: 09/21/17 2215 09/21/172214 Objective Remarks GENERAL: This is a well-nourished, well-developed patient, in no apparent distress. CARDIOVASCULAR: Regular rate and rhythm RESPIRATORY: Clear to auscultation. Breath sounds equal bilaterally. No wheezes , rales, or rhonchi. GASTROINTESTINAL: Abdomen soft, mild mid tenderness with no rebound or guarding , nondistended. Umbilical hernia reducible few active bowel sounds MUSCULOSKELETAL: Extremities without clubbing, cyanosis, or edema. NEURO: Alert & Oriented x4 to person, place, time, situation. Moves all ext x4 A/P Problem List: (1) SBO (small bowel obstruction) ICD Code: K56.609 - Unspecified intestinal obstruction, unspecified as to partial versus complete obstruction (2) Pancreatic cancer ICD Code: C25.9 - Malignant neoplasm of pancreas, unspecified Status: Chronic (3) Hypokalemia ICD Code: E87.6 - Hypokalemia Status: Acute (4) Leukocytosis ICD Code: D72.829 - Elevated white blood cell count, unspecified Status: Acute Assessment and Plan 1. Suspect ileus: acute onset of abdominal pain, nausea/vomiting x2 days. CT Abd/Pelvis w/ dilatation of proximal/mid small bowel concerning for obstruction, -patient continues to have loose stools; start clear liquid diet and continue NG tube to low intermittent suction until evaluated by surgery Dr. Pinon. Send stool for stool studies and rule out for C. difficile. 2. Pancreatic CA: Following w/ Dr. Tolentino, currently on chemo, states pending last cycle and has plans for surgical intervention w/ Dr. Pinon. Will consult Dr. Tolentino for further evaluation. Surgery consult as above. Extensive discussion w/ patient regarding plan of care, pt would like aggressive treatment. 3. Hypokalemia: K+ 2.8, s/p replacement in ER, will recheck and replace as needed. Change IV fluids to normal saline with 20 mEq of K and monitor 4. Leukocytosis: WBC 18 w/ significant bandemia of 34%, follow up cultures, continue IV Abx, repeat labs in am. Check C. difficile and stool cultures. Check urinalysis to rule out urinary tract infection 5. DVT Prophylaxis: SCD/Teds Discharge Planning Home when medically stable Problem Qualifiers (1) Leukocytosis: Qualified Codes: D72.825 - Bandemia Pia Mondragon MD Sep 22, 2017 11:54
[2017-09-22] MEDS ORDERED: D5-1/2 NS + KCL 20 MEQ INJ 1,000 ML IV SCH (12:18)
[2017-09-22] MEDS: NS + KCL 20 MEQ INJ 1,000 ML IV SCH ×2 (13:00→22:38)
[2017-09-22] MEDS: METOCLOPRAMIDE HCL 10 MG/2 ML VIAL IV PUSH PRN (21:08)
--- NOTE | 2017-09-22 21:43 | MB ---
cc: Joyce Loco MD DATE: 09/22/2017 REASON FOR CONSULTATION: Consult requested by hospitalist for followup of pancreatic cancer. HISTORY OF PRESENT ILLNESS: Azul is a 72-year-old female. She is under the care of my associate, Dr. Raymond Tolentino, for pancreatic cancer. The patient is currently on neoadjuvant FOLFIRINOX chemotherapy. The plan was to give her 4 cycles of chemotherapy and then surgery. Her last chemotherapy was about a week ago. The patient developed nausea, vomiting. The patient came to the emergency room complaining of intractable nausea, vomiting and abdominal distention. The CT of the abdomen and pelvis showed dilatation of the proximal and mid small bowel with suspected transition point in the right lower quadrant/pelvis concerning for small-bowel obstruction. She has an NG tube placed in and general surgery have been consulted. The CAT scan did not show any evidence of a pancreatic mass. There is dilatation of the pancreatic duct with atrophy of the pancreas. There is a biliary stent in place. No liver metastasis noted. The patient is admitted to the hospital. I have been asked to see her for further evaluation. The patient states that she has profuse diarrhea since she has been in the hospital now. She is feeling really sick. She does not want any further chemotherapy. She wanted to discuss with her surgeon, Dr. Fredi Meza, if he could do surgery. The rest of the review of systems is negative. PAST MEDICAL HISTORY: COPD, diverticulosis, gastroesophageal reflux disease, Graves disease, status post radioactive iodine treatment, hypertension, hypothyroidism, migraine. PAST SURGICAL HISTORY: Neurostimulator placement in the spine, right hip surgery, right knee surgery, tonsillectomy, ERCP with metal stent placement in the bile duct, cholecystectomy, appendectomy. ALLERGIES: NONE. MEDICATIONS PRIOR TO COMING TO THE HOSPITAL: Amlodipine, ibuprofen, levothyroxine, losartan, meclizine, omeprazole, sumatriptan, vitamin D3, Zofran and FOLFIRINOX. FAMILY HISTORY: Significant for breast cancer. SOCIAL HISTORY: The patient is . She stopped smoking several years ago. She used to smoke a pack a day for at least 50 years. She does not drink alcohol. PHYSICAL EXAMINATION: GENERAL: Reveals a well-developed, well-nourished, ill-appearing white female in no apparent distress. VITAL SIGNS: Temperature 98.4, heart rate of 77, blood pressure 131/74. HEENT: PERRLA. EOMI, anicteric. No oral lesions noted. NECK: No lymphadenopathy noted. LUNGS: Clear. No wheezing, rhonchi or rales. HEART: Regular rate and rhythm. ABDOMEN: Distended. Bowel sounds are hyperactive. EXTREMITIES: No pedal edema. NEUROLOGIC: Awake, alert, oriented x 3. SKIN: No significant lesions are noted. ASSESSMENT: 1. Pancreatic cancer, status post 3 cycles of FOLFIRINOX chemotherapy. 2. Intractable nausea, vomiting and diarrhea, most likely due to the recent chemotherapy. This is probably cumulative side effect from the FOLFIRINOX chemotherapy. 3. Small bowel obstruction, on conservative management. PLAN: I have reviewed her available records and I have discussed with the patient regarding her present clinical situation. She has small bowel obstruction/ileus. She has profuse diarrhea now. When she came in, she had nausea, vomiting and abdominal distention. She has an NG tube placed in. She has been seen by the surgeon. They have recommended to clamp the NG tube and to start the clear liquids. The patient had 3/4 cycles of FOLFIRINOX chemotherapy. The patient decided no further chemotherapy. She is wishing that Dr. Fredi Meza can do surgery and she does not have to go through further chemotherapy. I reviewed the CAT scan of the abdomen and pelvis findings. There is no evidence of a pancreatic mass noted. There is atrophy of the pancreas noted. We will discuss with Dr. Fredi Meza to see whether he wanted to have surgery now after 3 cycles of neoadjuvant FOLFIRINOX chemotherapy. The patient's primary oncologist, Dr. Tolentino, is out of town and he will be back next week, Friday, and will resume the care if the patient is still in the hospital. Thank you for asking my opinion. MD MARGUERITE Kim/ADEEL , 06:45 PM , 09:42 PM
--- NOTE | 2017-09-22 23:01 | EKG ---
Date Performed: 09/21/2017 Time Performed: 22:22:24 PTAGE: 72 years EKG: Sinus rhythm MINIMAL ST DEPRESSION BORDERLINE ECG PREVIOUS TRACING : 09/03/2017 08.58 Compared to previous tracing, ST/T wave changes now noted DOCTOR: Siva Rollins Interpretating Date/Time 09/22/2017 23:00:34
[2017-09-23] VITALS (8 sets, daily range): BP systolic 98–152; BP diastolic 59–91; PULSE 64–75; RESP 16–20; TEMP 98–98.7; O2SAT 90–98
[2017-09-23 00:40] LABS: BILIRUBIN, URINE NEG (NEG); BLOOD, URINE SMALL (NEG); GLUCOSE,URINE NEG (NEG); HYALINE CAST, URINE 1 /lpf (RARE); KETONE, URINE TRACE mg/dL (NEG); MUCUS URINE FEW /lpf (OCC); NITRITE,URINE NEG (NEG); SQUAMOUS EPITHELIAL CELL URINE 5 /hpf (0-5); URINE COLOR YELLOW (YELLW/STRAW); URINE LEUKOCYTE ESTERASE TRACE (NEG)
[2017-09-23] MEDS: MORPHINE SULFATE 4 MG/ML INJ IV PUSH PRN ×2 (07:16→20:06)
[2017-09-23] MEDS: DOCUSATE SODIUM 50 MG/SENNA 8.6 MG TAB PO SCH ×2 (09:00→19:56)
[2017-09-23] MEDS: SODIUM CHLORIDE 0.9% FLUSH 10 ML FLUSH IV FLUSH SCH ×2 (09:00→20:11)
[2017-09-23 09:09] LABS: HEMATOCRIT 29.1 % (35.0-46.0); HEMOGLOBIN 9.6 GM/DL (11.6-15.3); MEAN CELL VOLUME 84.8 FL (80.0-100.0); MEAN CORPUSCULAR HEMOGLOBIN 27.9 PG (27.0-34.0); MEAN CORPUSCULAR HGB CONC 32.9 % (32.0-36.0); PLATELET COUNT 186 TH/MM3 (150-450); RED BLOOD COUNT 3.43 MIL/MM3 (4.00-5.30); WHITE BLOOD COUNT 15.5 TH/MM3 (4.0-11.0)
[2017-09-23] MEDS: CEFEPIME INJ 1,000 MG in SODIUM CHLORIDE 0.9% INJ 100 ML IV SCH ×2 (09:31→20:08)
[2017-09-23] MEDS: NS + KCL 20 MEQ INJ 1,000 ML IV SCH (09:33)
[2017-09-23 09:57] LABS: BANDS 23 % (0-6); LYMPHOCYTES 16 % (9-44); METAMYELOCYTES 4 % (0-1); MONOCYTES 8 % (0-8); MYELOCYTES 9 % (0-0); NEUTROPHIL # MANUAL DIFF 11.6 TH/MM3 (1.8-7.7); POLYS (SEG NEUTROPHILS) 39 % (16-70); TOXIC GRANULATION 2+ (NORMAL)
[2017-09-23 10:42] LABS: ALBUMIN 2.5 GM/DL (3.4-5.0); BICARBONATE 24.5 MEQ/L (21.0-32.0); CALCIUM 7.3 MG/DL (8.5-10.1); CALCIUM-PROTEIN CORRECTED 8.2 MG/DL (8.5-10.1); CREATININE 0.38 MG/DL (0.50-1.00); TOTAL BILIRUBIN ADULT 0.5 MG/DL (0.2-1.0); TOTAL PROTEIN 5.4 GM/DL (6.4-8.2)
--- NOTE | 2017-09-23 11:01 | PD.ONC.PN ---
Subjective Subjective Remarks Afebrile overnight. Patient resting in bed in nad. states abdominal pain is better today. still having copious amounts of diarrhea. Objective Data Date Time Temp Pulse Resp B/P (MAP) Pulse Ox O2 Delivery O2 Flow Rate FiO2 09/23/17 08:00 98.3 69 16 110/59 (76) 90 09/23/17 05:09 98.4 74 18 98/60 (73) 97 09/23/17 03:57 71 09/23/17 00:13 98.0 72 17 105/64 (78) 96 09/22/17 23:50 66 09/22/17 20:30 74 09/22/17 20:18 97.8 77 18 174/84 (114) 98 09/22/17 18:30 20 09/22/17 18:00 97.6 75 18 149/77 (101) 96 09/22/17 11:30 97.6 75 18 149/77 (101) 96 Result Diagram: 09/23/1772609/23/17 07 Laboratory Results Laboratory Tests Test 09/22/17 14:05 09/23/17 00:15 09/23/17 07:27 Stool C. difficile Toxin (PCR) NEGATIVE Stl C. difficile Toxin Epiderm 027 PRESUMPTIVE NEGATIVE Urine Color YELLOW Urine Turbidity HAZY Urine pH 5.0 Urine Specific [place] 1.049 Urine Protein 30 mg/dL Urine Glucose (UA) NEG mg/dL Urine Ketones TRACE mg/dL Urine Occult Blood SMALL Urine Nitrite NEG Urine Bilirubin NEG Urine Urobilinogen LESS THAN 2 mg/dL Urine Leukocyte Esterase TRACE Urine RBC 5 /hpf Urine WBC 34 /hpf Urine Squamous Epithelial Cells 5 /hpf Urine Hyaline Casts 1 /lpf Urine Mucus FEW /lpf Microscopic Urinalysis Comment CULT NOT INDICATED White Blood Count 15.5 TH/MM3 Red Blood Count 3.43 MIL/MM3 Hemoglobin 9.6 GM/DL Hematocrit 29.1 % Mean Corpuscular Volume 84.8 FL Mean Corpuscular Hemoglobin 27.9 PG Mean Corpuscular Hemoglobin Concent 32.9 % Red Cell Distribution Width 16.0 % Platelet Count 186 TH/MM3 Mean Platelet Volume 9.0 FL CBC Comment AUTO DIFF Differential Total Cells Counted 100 Neutrophils % (Manual) 39 % Band Neutrophils % 23 % Lymphocytes % 16 % Monocytes % 8 % Eosinophils % 1 % Neutrophils # (Manual) 11.6 TH/MM3 Metamyelocytes 4 % Myelocytes 9 % Differential Comment FINAL DIFF MANUAL Toxic Granulation 2+ Platelet Estimate NORMAL Platelet Morphology Comment NORMAL Ovalocytes Blood Urea Nitrogen 13 MG/DL Creatinine 0.38 MG/DL Random Glucose 79 MG/DL Total Protein 5.4 GM/DL Albumin 2.5 GM/DL Calcium Level 7.3 MG/DL Alkaline Phosphatase 148 U/L Aspartate Amino Transf (AST/SGOT) 30 U/L Alanine Aminotransferase (ALT/SGPT) 38 U/L Total Bilirubin 0.5 MG/DL Sodium Level 144 MEQ/L Potassium Level 3.5 MEQ/L Chloride Level 111 MEQ/L Carbon Dioxide Level 24.5 MEQ/L Anion Gap 9 MEQ/L Estimat Glomerular Filtration Rate 166 ML/MIN Protein Corrected Calcium 8.2 MG/DL Culture Results Microbiology Date/Time Source Procedure Growth Status 09/22/17 00:15 Blood Peripheral Aerobic Blood Culture Pending Received 09/22/17 00:15 Blood Peripheral Anaerobic Blood Culture Pending Received 09/22/17 00:00 Blood Peripheral Aerobic Blood Culture Pending Received 09/22/17 00:00 Blood Peripheral Anaerobic Blood Culture Pending Received 09/22/17 14:05 Stool Stool Giardia Antigen (JUAN ANTONIO) Pending Received 09/22/17 14:05 Stool Stool - Final NO ENTERIC PATHOGENS DETECTED BY PCR... Complete 09/22/17 14:05 Stool Stool Rotavirus Antigen - Final NEGATIVE - ROTAVIRUS ANTIGEN IS ABSEN... Complete Administered Medications Medications (Trade) Dose Ordered Sig/Bert Route PRN Reason Start Time Stop Time Status Last Admin Dose Admin Cefepime HCl 1000 mg/Sodium Chloride 100 ml @ 200 mls/hr Q12H IV 09/22/17 09:00 09/23/17 09:31 Sodium Chloride (NS Flush) 2 ml UNSCH PRN IV FLUSH FLUSH AFTER USING IV ACCESS 09/22/17 01:00 09/23/17 07:16 Sodium Chloride (NS Flush) 2 ml BID IV FLUSH 09/22/17 09:00 09/22/17 21:08 Metoclopramide HCl (Reglan Inj) 5 mg Q6H PRN IV PUSH NAUSEA OR VOMITING 09/22/17 01:00 09/22/17 21:08 Morphine Sulfate (Morphine Inj) 2 mg Q3H PRN IV PUSH Pain 6-10 09/22/17 01:00 09/23/17 07:16 Potassium Chloride/Sodium Chloride 1,000 ml @ 100 mls/hr Q10H IV 09/22/17 13:00 09/23/17 09:33 Objective Remarks GENERAL: Pleasant elderly female, sitting up in bed. she appears comfortable and in nad. SKIN: Warm and dry. HEAD: Normocephalic. EYES: No injection or drainage. NECK: Supple, trachea midline. CARDIOVASCULAR: Regular rate and rhythm RESPIRATORY: Breath sounds equal bilaterally. No accessory muscle use. GASTROINTESTINAL: Abdomen soft, mildly distended, +TTP in epigastrium. EXTREMITIES: No cyanosis NEUROLOGICAL: awake and alert. normal speech. moving extremities. Assessment/Plan Problem List: (1) Diarrhea ICD Codes: R19.7 - Diarrhea, unspecified Status: Resolved Plan: --most likely d/t patient's chemotherapy --will start Sandostatin. (2) Pancreatic cancer ICD Codes: C25.9 - Malignant neoplasm of pancreas, unspecified Status: Chronic Plan: --on neoadjuvant s/p 3 cycles (most recent 1 week ago) FOLFIRINOX chemotherapy. --plan was to give her 4 cycles of chemotherapy and then surgery, patient now stating she doesn't want any more chemo --will discuss with Dr. Fredi Meza to see whether he wanted to have surgery now after 3 cycles of neoadjuvant FOLFIRINOX chemotherapy. (3) SBO (small bowel obstruction) ICD Codes: K56.609 - Unspecified intestinal obstruction, unspecified as to partial versus complete obstruction Plan: --NGT clamped. --on clear liquids. Assessment 72y/o female with pancreatic cancer admitted with SBO. h/o COPD, diverticulosis, gastroesophageal reflux disease, Graves disease, status post radioactive iodine treatment, hypertension, hypothyroidism, migraine. Attending Statement The exam, history, and the medical decision-making described in the above note were completed with the assistance of the mid-level provider. I reviewed and agree with the findings presented. I attest that I had a [id number] encounter with the patient on the same day, and personally performed and documented my assessment and findings in the medical record. LATE ENTRY still has severe diarrhea Abd pain and distention. surg note reviewed. try Sandostatin for diarrhea nomore chemo. Antonia Walters Sep 23, 2017 11:01 Mahnaz Loco MD Sep 24, 2017 21:51
--- NOTE | 2017-09-23 11:07 | HHI.PR ---
Subjective Remarks She reports continues to loose stools. Poor appetite and only wants to drink water. Not really tolerating clear liquid diet. No significant abdominal pain at this time. Just discomfort. Objective Vitals Vital Signs Date Time Temp Pulse Resp B/P (MAP) Pulse Ox O2 Delivery O2 Flow Rate FiO2 09/23/17 08:00 98.3 69 16 110/59 (76) 90 09/23/17 05:09 98.4 74 18 98/60 (73) 97 09/23/17 03:57 71 09/23/17 00:13 98.0 72 17 105/64 (78) 96 09/22/17 23:50 66 09/22/17 20:30 74 09/22/17 20:18 97.8 77 18 174/84 (114) 98 09/22/17 18:30 20 09/22/17 18:00 97.6 75 18 149/77 (101) 96 09/22/17 11:30 97.6 75 18 149/77 (101) 96 I/O 09/22/17 09/22/17 09/22/17 09/23/17 09/23/17 09/23/17 07:00 15:00 23:00 07:00 15:00 23:00 Intake Total 1050 ml 100 ml Output Total 700 ml 50 ml Balance 350 ml -50 ml 100 ml Intake Oral 0 ml IV Total 1050 ml 100 ml Output Stool Total 50 ml Gastric Drainage Total 700 ml # Voids 0 3 # Bowel Movements 6 Result Diagram: 09/23/17 0727 09/23/17 0727 Objective Remarks With NG tube in place GENERAL: This is a well-nourished, well-developed patient , in no apparent distress. CARDIOVASCULAR: Regular rate and rhythm RESPIRATORY: Clear to auscultation. Breath sounds equal bilaterally. No wheezes , rales, or rhonchi. GASTROINTESTINAL: Abdomen soft, mild mid tenderness with no rebound or guarding , nondistended. Umbilical hernia reducible few active bowel sounds MUSCULOSKELETAL: Extremities without clubbing, cyanosis, or edema. NEURO: Alert & Oriented x4 to person, place, time, situation. Moves all ext x4 A/P Problem List: (1) SBO (small bowel obstruction) ICD Code: K56.609 - Unspecified intestinal obstruction, unspecified as to partial versus complete obstruction (2) Pancreatic cancer ICD Code: C25.9 - Malignant neoplasm of pancreas, unspecified Status: Chronic (3) Hypokalemia ICD Code: E87.6 - Hypokalemia Status: Acute (4) Leukocytosis ICD Code: D72.829 - Elevated white blood cell count, unspecified Status: Acute Assessment and Plan 1. Suspect ileus: acute onset of abdominal pain, nausea/vomiting x3 place NG tube to days. CT Abd/Pelvis w/ dilatation of proximal/mid small bowel concerning for obstruction,-patient continues to have loose stools; start clear liquid diet and clamp NG tube her surgery Dr. Pinon. Stool studies negative for C. difficile and enteric pathogens and rotavirus.. 2. Pancreatic CA: Following w/ Dr. Tolentino, currently on chemo, states pending last cycle and has plans for surgical intervention w/ Dr. Pinon. Will consult Dr. Tolentino for further evaluation. Surgery consult as above. Extensive discussion w/ patient regarding plan of care, pt would like aggressive treatment. 3. Hypokalemia: Replaced Change IV fluids to half-normal normal saline with 20 mEq of K and monitor 4. Leukocytosis: This has improved and trending down 5. DVT Prophylaxis: SCD/Teds Discharge Planning Home when medically stable Problem Qualifiers (1) Leukocytosis: Qualified Codes: D72.825 - Bandemia Pia Mondragon MD Sep 23, 2017 11:07
--- NOTE | 2017-09-23 11:40 | HHI.PR ---
cc: Angel Pinon MD Subjective Subjective Notes Resting in bed Family at bedside Has been up several times with loose bowel movements Objective Vitals/I&O Vital Signs Date Time Temp Pulse Resp B/P (MAP) Pulse Ox O2 Delivery O2 Flow Rate FiO2 09/23/17 08:00 98.3 69 16 110/59 (76) 90 09/22/17 02:16 Room Air 09/21/17 22:36 2.00 Labs Laboratory Tests Test 09/22/17 14:05 09/23/17 00:15 09/23/17 07:27 Stool C. difficile Toxin (PCR) NEGATIVE Stl C. difficile Toxin Epiderm 027 PRESUMPTIVE NEGATIVE Urine Color YELLOW Urine Turbidity HAZY Urine pH 5.0 Urine Specific [place] 1.049 Urine Protein 30 Urine Glucose (UA) NEG Urine Ketones TRACE Urine Occult Blood SMALL Urine Nitrite NEG Urine Bilirubin NEG Urine Urobilinogen LESS THAN 2 Urine Leukocyte Esterase TRACE Urine RBC 5 Urine WBC 34 Urine Squamous Epithelial Cells 5 Urine Hyaline Casts 1 Urine Mucus FEW Microscopic Urinalysis Comment CULT NOT INDICATED White Blood Count 15.5 Red Blood Count 3.43 Hemoglobin 9.6 Hematocrit 29.1 Mean Corpuscular Volume 84.8 Mean Corpuscular Hemoglobin 27.9 Mean Corpuscular Hemoglobin Concent 32.9 Red Cell Distribution Width 16.0 Platelet Count 186 Mean Platelet Volume 9.0 CBC Comment AUTO DIFF Differential Total Cells Counted 100 Neutrophils % (Manual) 39 Band Neutrophils % 23 Lymphocytes % 16 Monocytes % 8 Eosinophils % 1 Neutrophils # (Manual) 11.6 Metamyelocytes 4 Myelocytes 9 Differential Comment FINAL DIFF MANUAL Toxic Granulation 2+ Platelet Estimate NORMAL Platelet Morphology Comment NORMAL Ovalocytes Blood Urea Nitrogen 13 Creatinine 0.38 Random Glucose 79 Total Protein 5.4 Albumin 2.5 Calcium Level 7.3 Alkaline Phosphatase 148 Aspartate Amino Transf (AST/SGOT) 30 Alanine Aminotransferase (ALT/SGPT) 38 Total Bilirubin 0.5 Sodium Level 144 Potassium Level 3.5 Chloride Level 111 Carbon Dioxide Level 24.5 Anion Gap 9 Estimat Glomerular Filtration Rate 166 Protein Corrected Calcium 8.2 Date/Time Source Procedure Growth Status 09/22/17 00:15 Blood Peripheral Aerobic Blood Culture - Preliminary NO GROWTH IN 1 DAY Resulted 09/22/17 00:15 Blood Peripheral Anaerobic Blood Culture - Preliminary NO GROWTH IN 1 DAY Resulted 09/22/17 14:05 Stool Stool Giardia Antigen (JUAN ANTONIO) Pending Received Radiology Last 48 hours Impressions Chest X-Ray 09/21/172209 Signed Impressions: CONCLUSION: No active disease. [id number] in superior vena cava. No free air identified under the diaphragms. Abdomen/Pelvis CT 09/21/172209 Signed Impressions: CONCLUSION: 1. Dilatation of the proximal and mid small bowel with a suspected transition point in the right lower quadrant/pelvis concerning for small bowel obstruction . 2. Biliary stent in place. There is pneumobilia. 3. Dilatation of pancreatic duct with atrophy of the pancreas. 4. Hepatic steatosis. Cardiovascular: Regular Lungs: Clear Abdomen: Non-distended, Non-tender Extremities: No edema Narrative Exam NGT clamped A/P Assessment and Plan 72 year old female with abdominal pain; nausea; vomiting; distention; likely ileus -+BM -Stool studies negative so far -DC NGT -Full liquids -Will continue nonoperative treatment Attending Statement The exam, history, and the medical decision-making described in the above note were completed with the assistance of the mid-level provider. I reviewed and agree with the findings presented. I attest that I had a [id number] encounter with the patient on the same day, and personally performed and documented my assessment and findings in the medical record. Patient with pancreatic Adenocarcinoma, colitis 2/2 chemo likely improved overall DC NG clears follow exams, abdomen soft, non-surgical Jennie Small/[employer] EDWIN Sep 23, 2017 11:40 Angel Pinon MD Sep 26, 2017 09:00
--- NOTE | 2017-09-23 13:17 | PQ ---
Physician Query Response Document PATIENT: RITA BARBOUR : 1945 ADMIT DATE: 09/22/2017 12:52 AM DISCH DATE: RESPONDING PROVIDER #: GKwong QUERY TEXT: Clarification of Clinical Findings Physician?s Documentation Request This Form is Not a Permanent Document in the Medical Record Pt Name: RITA BARBOUR MR #: [id number] Payor: [facility] Unit/Bed: [id number] Adm Date: 09/22/2017 12:52:00 AM Reviewer: Linda Shell Ext. Query Date: 09/23/2017 12:06:41 PM Clarification of Clinical Findings By submitting this query, we are merely seeking further clarification of documentation to accurately reflect all conditions that you are monitoring, evaluating, treating or that extend the hospitalizati on or utilize additional resources of care. Please utilize your independent clinical judgment when ad dressing the question(s) below. Dear Doctor Pia Mondragon, The patient?s Clinical Indicators include: Please clarify and document your clinical opinion in the progress notes and discharge summary includi ng the definitive and/or presumptive diagnosis (suspected or probable), related to the above clinical findings. Please include clinical findings supporting your diagnosis. Thank you, Linda Shell CDS: Linda Shell Patient Unit: N06B Room: 1616 Contact Number: CDS/RN ext. [phone] Toxic gastroenteritis and colitis in the setting of a patient w pancreatic cancer on chemotherapy w N /V/D ,imaging studies w sm bowel dilatation TX w IV fluids, electrolyte replacement /IV antibiotics / bowel decompression and rest. Other explanation of clinical findings. Unable to determine (no explanation for clinical findings). The medical record reflects the following clinical findings, treatment, and risk factors. * Clinical Indicators N/V/D abd pain imaging studies partial SBO vs ileus * Risk Factors pancreatic cancer on FOLFIRINOX chemotherapy * Treatment IV fluids, electrolyte replacement /IV antibiotics / bowel decompression and rest PLEASE DOCUMENT ANY ADDITIONAL DIAGNOSES AND/OR SPECIFICITY IN THE PROGRESS NOTES AND/OR DISCHARGE GUERRA MMARY. Agreed Clinically unable to determine/unknown Disagree with the above request Need to discuss Query created by: Linda Shell on 09/23/2017 12:06 PM RESPONSE TEXT: Ileus with suspected toxic gastroenteritis from chemotherapy for pancreatic cancer Electronically signed by: Rhina Mondragon MD (Ginny) 09/23/2017 1:14 PM
[2017-09-23] MEDS: METOCLOPRAMIDE HCL 10 MG/2 ML VIAL IV PUSH PRN (15:10)
[2017-09-23] MEDS ORDERED: ALUMINUM/MAGNESIUM/SIMETH 30 ML CUP PO PRN (15:15)
[2017-09-23] MEDS: OCTREOTIDE INJ 100 MCG/ML VIAL SQ SCH ×2 (15:35→23:27)
[2017-09-23] MEDS: 1/2 NS + KCL 20 MEQ INJ 1,000 ML IV SCH ×2 (15:35→23:30)
[2017-09-23] MEDS ORDERED: FAMOTIDINE 20 MG TAB PO ONE (16:00)
[2017-09-24] VITALS: BP 129/83; PULSE 65; PULSE 72; RESP 16; TEMP 97.9; O2SAT 96
[2017-09-24] MEDS: FAMOTIDINE 20 MG TAB PO SCH ×2 (03:56→16:45)
[2017-09-24 04:00] VITALS: BP 153/88; PULSE 66; PULSE 80; RESP 15; TEMP 98.1; O2SAT 96
[2017-09-24 05:30] LABS: AUTOMATED NEUTROPHIL # 11.4 TH/MM3 (1.8-7.7); BASOPHIL # 0.1 TH/MM3 (0-0.2); BASOPHIL % 0.6 % (0.0-2.0); EOSINOPHIL # 0.2 TH/MM3 (0-0.4); HEMATOCRIT 30.7 % (35.0-46.0); HEMOGLOBIN 9.9 GM/DL (11.6-15.3); LYMPH % 16.4 % (9.0-44.0); LYMPHOCYTE # 2.6 TH/MM3 (1.0-4.8); MEAN CELL VOLUME 85.9 FL (80.0-100.0); MEAN CORPUSCULAR HEMOGLOBIN 27.6 PG (27.0-34.0); MEAN CORPUSCULAR HGB CONC 32.1 % (32.0-36.0); MEAN PLATELET VOLUME 9.1 FL (7.0-11.0); MONOCYTE # 1.6 TH/MM3 (0-0.9); PLATELET COUNT 260 TH/MM3 (150-450); RED BLOOD COUNT 3.57 MIL/MM3 (4.00-5.30); RED CELL DISTRIBUTION WIDTH 15.6 % (11.6-17.2); WHITE BLOOD COUNT 15.9 TH/MM3 (4.0-11.0)
[2017-09-24 05:38] LABS: CALCIUM 7.3 MG/DL (8.5-10.1); CREATININE 0.37 MG/DL (0.50-1.00)
[2017-09-24 05:54] LABS: CALCIUM-PROTEIN CORRECTED 8.2 MG/DL (8.5-10.1); TOTAL PROTEIN 5.5 GM/DL (6.4-8.2)
[2017-09-24] MEDS: OCTREOTIDE INJ 100 MCG/ML VIAL SQ SCH (06:22)
[2017-09-24 08:00] VITALS: BP 138/83; PULSE 68; RESP 18; TEMP 98.6; O2SAT 94
[2017-09-24] MEDS: SODIUM CHLORIDE 0.9% FLUSH 10 ML FLUSH IV FLUSH SCH ×2 (08:19→19:25)
[2017-09-24] MEDS: DOCUSATE SODIUM 50 MG/SENNA 8.6 MG TAB PO SCH ×2 (08:19→19:25)
[2017-09-24 08:28] LABS: BANDS 33 % (0-6); BLASTS 1 % (0-0); LYMPHOCYTES 15 % (9-44); METAMYELOCYTES 9 % (0-1); MONOCYTES 7 % (0-8); MYELOCYTES 2 % (0-0); NEUTROPHIL # MANUAL DIFF 11.9 TH/MM3 (1.8-7.7); POLYS (SEG NEUTROPHILS) 31 % (16-70)
[2017-09-24 08:29] LABS: TOXIC GRANULATION 2+ (NORMAL)
[2017-09-24] MEDS: 1/2 NS + KCL 20 MEQ INJ 1,000 ML IV SCH (08:40)
[2017-09-24] MEDS: MORPHINE SULFATE 4 MG/ML INJ IV PUSH PRN ×2 (08:41→19:22)
[2017-09-24] MEDS: CEFEPIME INJ 1,000 MG in SODIUM CHLORIDE 0.9% INJ 100 ML IV SCH ×2 (08:41→19:22)
--- NOTE | 2017-09-24 10:30 | PD.ONC.PN ---
Subjective Subjective Remarks Afebrile overnight. Patient resting in bed in nad. no further diarrhea. tolerating a full liquid diet but states she doesn't have much of an appetite. Objective Data Date Time Temp Pulse Resp B/P (MAP) Pulse Ox O2 Delivery O2 Flow Rate FiO2 09/24/17 08:46 18 09/24/17 08:00 98.6 68 18 138/83 (101) 94 09/24/17 04:00 98.1 80 15 153/88 (109) 96 09/24/17 04:00 66 09/24/17 00:00 97.9 72 16 129/83 (98) 96 09/24/17 00:00 65 09/23/17 20:00 75 09/23/17 20:00 98.0 68 16 149/88 (108) 98 09/23/17 20:00 75 09/23/17 16:00 73 09/23/17 15:41 98.3 64 20 152/91 (111) 95 09/23/17 13:29 98.7 74 18 142/76 (98) 96 09/24/17 09/24/17 09/24/17 07:00 15:00 23:00 Intake Total 1120 ml Output Total 1000 ml Balance 120 ml Result Diagram: 09/24/17 0355 09/24/17 0355 Laboratory Results Laboratory Tests Test 09/24/17 03:55 White Blood Count 15.9 TH/MM3 Red Blood Count 3.57 MIL/MM3 Hemoglobin 9.9 GM/DL Hematocrit 30.7 % Mean Corpuscular Volume 85.9 FL Mean Corpuscular Hemoglobin 27.6 PG Mean Corpuscular Hemoglobin Concent 32.1 % Red Cell Distribution Width 15.6 % Platelet Count 260 TH/MM3 Mean Platelet Volume 9.1 FL Neutrophils (%) (Auto) 72.0 % Lymphocytes (%) (Auto) 16.4 % Monocytes (%) (Auto) 10.0 % Eosinophils (%) (Auto) 1.0 % Basophils (%) (Auto) 0.6 % Neutrophils # (Auto) 11.4 TH/MM3 Lymphocytes # (Auto) 2.6 TH/MM3 Monocytes # (Auto) 1.6 TH/MM3 Eosinophils # (Auto) 0.2 TH/MM3 Basophils # (Auto) 0.1 TH/MM3 CBC Comment AUTO DIFF Differential Total Cells Counted 100 Neutrophils % (Manual) 31 % Band Neutrophils % 33 % Lymphocytes % 15 % Monocytes % 7 % Eosinophils % 2 % Neutrophils # (Manual) 11.9 TH/MM3 Metamyelocytes 9 % Myelocytes 2 % Differential Comment FINAL DIFF MANUAL Blastocytes 1 % Toxic Granulation 2+ Platelet Estimate NORMAL Platelet Morphology Comment NORMAL Blood Urea Nitrogen 6 MG/DL Creatinine 0.37 MG/DL Random Glucose 97 MG/DL Total Protein 5.5 GM/DL Calcium Level 7.3 MG/DL Sodium Level 143 MEQ/L Potassium Level 3.8 MEQ/L Chloride Level 112 MEQ/L Carbon Dioxide Level 21.0 MEQ/L Anion Gap 10 MEQ/L Estimat Glomerular Filtration Rate 171 ML/MIN Protein Corrected Calcium 8.2 MG/DL Culture Results Microbiology Date/Time Source Procedure Growth Status 09/22/17 00:15 Blood Peripheral Aerobic Blood Culture - Preliminary NO GROWTH IN 1 DAY Resulted 09/22/17 00:15 Blood Peripheral Anaerobic Blood Culture - Preliminary NO GROWTH IN 1 DAY Resulted 09/22/17 00:00 Blood Peripheral Aerobic Blood Culture - Preliminary NO GROWTH IN 1 DAY Resulted 09/22/17 00:00 Blood Peripheral Anaerobic Blood Culture - Preliminary NO GROWTH IN 1 DAY Resulted 09/22/17 14:05 Stool Stool Giardia Antigen (JUAN ANTONIO) Pending Received 09/22/17 14:05 Stool Stool - Final NO ENTERIC PATHOGENS DETECTED BY PCR... Complete 09/22/17 14:05 Stool Stool Rotavirus Antigen - Final NEGATIVE - ROTAVIRUS ANTIGEN IS ABSEN... Complete Administered Medications Medications (Trade) Dose Ordered Sig/Bert Route PRN Reason Start Time Stop Time Status Last Admin Dose Admin Cefepime HCl 1000 mg/Sodium Chloride 100 ml @ 200 mls/hr Q12H IV 09/22/17 09:00 09/24/17 08:41 Sodium Chloride (NS Flush) 2 ml UNSCH PRN IV FLUSH FLUSH AFTER USING IV ACCESS 09/22/17 01:00 09/23/17 07:16 Sodium Chloride (NS Flush) 2 ml BID IV FLUSH 09/22/17 09:00 09/23/17 20:11 Metoclopramide HCl (Reglan Inj) 5 mg Q6H PRN IV PUSH NAUSEA OR VOMITING 09/22/17 01:00 09/23/17 15:10 Morphine Sulfate (Morphine Inj) 2 mg Q3H PRN IV PUSH Pain 6-10 09/22/17 01:00 09/24/17 08:41 Potassium Chloride/Sodium Chloride 1,000 ml @ 100 mls/hr Q10H IV 09/23/17 12:07 09/24/17 08:40 Famotidine (Pepcid) 20 mg Q12H PO 09/24/17 04:00 09/24/17 03:56 Objective Remarks GENERAL: Well-nourished, well-developed patient. SKIN: Warm and dry. HEAD: Normocephalic. EYES: No injection or drainage. NECK: Supple, trachea midline. CARDIOVASCULAR: Regular rate and rhythm. RESPIRATORY: Breath sounds equal bilaterally. No accessory muscle use. GASTROINTESTINAL: Abdomen soft, non-tender, nondistended. EXTREMITIES: No cyanosis NEUROLOGICAL: awake and alert. normal speech. moving extremities. Assessment/Plan Problem List: (1) Pancreatic cancer ICD Codes: C25.9 - Malignant neoplasm of pancreas, unspecified Status: Chronic Plan: 09/24: patient is clear for discharge from oncology perspective. ok to d/ c when cleared by surgery. follow up in clinic with Dr. Tolentino in 1-2 weeks post- discharge --on neoadjuvant s/p 3 cycles (most recent 1 week ago) FOLFIRINOX chemotherapy. --plan was to give her 4 cycles of chemotherapy and then surgery, patient now stating she doesn't want any more chemo (2) Ileus ICD Codes: K56.7 - Ileus, unspecified Plan: --management per surgery --tolerating full liquid diet. (3) Diarrhea ICD Codes: R19.7 - Diarrhea, unspecified Status: Resolved Plan: --resolved. --s/p Sandostatin x 3 doses Assessment 72y/o female with pancreatic cancer admitted with SBO. h/o COPD, diverticulosis, gastroesophageal reflux disease, Graves disease, status post radioactive iodine treatment, hypertension, hypothyroidism, migraine. Attending Statement The exam, history, and the medical decision-making described in the above note were completed with the assistance of the mid-level provider. I reviewed and agree with the findings presented. I attest that I had a [id number] encounter with the patient on the same day, and personally performed and documented my assessment and findings in the medical record. Feels much better. No more diarrhea. Eating again. She had cumulative side effect from FOLFORINOX chemo. Decline further chemo. I agree with her. She has d/w Dr Reina. He will wait for 3 weeks for her to recover and will schedule surgery. Ok to D/C Antonia Walters Sep 24, 2017 10:30 Mahnaz Loco MD Sep 24, 2017 21:54
--- NOTE | 2017-09-24 11:56 | HHI.PR ---
cc: Angel Pinon MD Subjective Subjective Notes Happy because she is not having diarrhea anymore Feels hungry Objective Vitals/I&O Vital Signs Date Time Temp Pulse Resp B/P (MAP) Pulse Ox O2 Delivery O2 Flow Rate FiO2 09/24/17 08:46 18 09/24/17 08:00 98.6 68 138/83 (101) 94 09/22/17 02:16 Room Air 09/21/17 22:36 2.00 Labs Laboratory Tests Test 09/24/17 03:55 White Blood Count 15.9 Red Blood Count 3.57 Hemoglobin 9.9 Hematocrit 30.7 Mean Corpuscular Volume 85.9 Mean Corpuscular Hemoglobin 27.6 Mean Corpuscular Hemoglobin Concent 32.1 Red Cell Distribution Width 15.6 Platelet Count 260 Mean Platelet Volume 9.1 Neutrophils (%) (Auto) 72.0 Lymphocytes (%) (Auto) 16.4 Monocytes (%) (Auto) 10.0 Eosinophils (%) (Auto) 1.0 Basophils (%) (Auto) 0.6 Neutrophils # (Auto) 11.4 Lymphocytes # (Auto) 2.6 Monocytes # (Auto) 1.6 Eosinophils # (Auto) 0.2 Basophils # (Auto) 0.1 CBC Comment AUTO DIFF Differential Total Cells Counted 100 Neutrophils % (Manual) 31 Band Neutrophils % 33 Lymphocytes % 15 Monocytes % 7 Eosinophils % 2 Neutrophils # (Manual) 11.9 Metamyelocytes 9 Myelocytes 2 Differential Comment FINAL DIFF MANUAL Blastocytes 1 Toxic Granulation 2+ Platelet Estimate NORMAL Platelet Morphology Comment NORMAL Blood Urea Nitrogen 6 Creatinine 0.37 Random Glucose 97 Total Protein 5.5 Calcium Level 7.3 Sodium Level 143 Potassium Level 3.8 Chloride Level 112 Carbon Dioxide Level 21.0 Anion Gap 10 Estimat Glomerular Filtration Rate 171 Protein Corrected Calcium 8.2 Date/Time Source Procedure Growth Status 09/22/17 00:15 Blood Peripheral Aerobic Blood Culture - Preliminary NO GROWTH IN 2 DAYS Resulted 09/22/17 00:15 Blood Peripheral Anaerobic Blood Culture - Preliminary NO GROWTH IN 2 DAYS Resulted 09/22/17 14:05 Stool Stool Giardia Antigen (JUAN ANTONIO) Pending Received Radiology Last 48 hours Impressions Chest X-Ray 09/21/172209 Signed Impressions: CONCLUSION: No active disease. [id number] in superior vena cava. No free air identified under the diaphragms. Abdomen/Pelvis CT 09/21/172209 Signed Impressions: CONCLUSION: 1. Dilatation of the proximal and mid small bowel with a suspected transition point in the right lower quadrant/pelvis concerning for small bowel obstruction . 2. Biliary stent in place. There is pneumobilia. 3. Dilatation of pancreatic duct with atrophy of the pancreas. 4. Hepatic steatosis. Cardiovascular: Regular Lungs: Clear Abdomen: Non-distended, Non-tender Extremities: No edema Narrative Exam NGT out A/P Assessment and Plan 72 year old female with abdominal pain; nausea; vomiting; distention; likely ileus -+BM -Advance to regular diet ---patient only eat chicken -DC fluids -Will continue nonoperative treatment -Hopefully home in the next 24-48 hours Jennie Small. EDWIN/[employer] EDWIN Sep 24, 2017 11:56
[2017-09-24 12:00] VITALS: BP 145/84; PULSE 69; RESP 18; TEMP 98.2; O2SAT 97
--- NOTE | 2017-09-24 15:25 | HHI.PR ---
Subjective Remarks The patient was feeling well. She was tolerating liquids. She has not been having diarrhea. She does not feel weak. She is looking forward to going home soon. No acute concerns at this time. Objective Vitals Vital Signs Date Time Temp Pulse Resp B/P (MAP) Pulse Ox O2 Delivery O2 Flow Rate FiO2 09/24/17 12:00 98.2 69 18 145/84 (104) 97 09/24/17 08:46 18 09/24/17 08:00 98.6 68 18 138/83 (101) 94 09/24/17 04:00 98.1 80 15 153/88 (109) 96 09/24/17 04:00 66 09/24/17 00:00 97.9 72 16 129/83 (98) 96 09/24/17 00:00 65 09/23/17 20:00 75 09/23/17 20:00 98.0 68 16 149/88 (108) 98 09/23/17 20:00 75 09/23/17 16:00 73 09/23/17 15:41 98.3 64 20 152/91 (111) 95 I/O 09/23/17 09/23/17 09/23/17 09/24/17 09/24/17 09/24/17 07:00 15:00 23:00 07:00 15:00 23:00 Intake Total 600 ml 1120 ml Output Total 700 ml 1000 ml Balance -100 ml 120 ml Intake Oral 500 ml 120 ml IV Total 100 ml 1000 ml Output Urine Total 700 ml 1000 ml # Voids 4 # Bowel Movements 4 Result Diagram: 09/24/17 0355 09/24/17 0355 Imaging Last Impressions Chest X-Ray 09/21/172209 Signed Impressions: CONCLUSION: No active disease. [id number] in superior vena cava. No free air identified under the diaphragms. Abdomen/Pelvis CT 09/21/172209 Signed Impressions: CONCLUSION: 1. Dilatation of the proximal and mid small bowel with a suspected transition point in the right lower quadrant/pelvis concerning for small bowel obstruction . 2. Biliary stent in place. There is pneumobilia. 3. Dilatation of pancreatic duct with atrophy of the pancreas. 4. Hepatic steatosis. Objective Remarks GENERAL: This is a well-nourished, well-developed patient, in no apparent distress. CARDIOVASCULAR: Regular rate and rhythm RESPIRATORY: Clear to auscultation. Breath sounds equal bilaterally. No wheezes , rales, or rhonchi. GASTROINTESTINAL: Abdomen soft, no tenderness with no rebound or guarding, nondistended. + bowel sounds. MUSCULOSKELETAL: Extremities without clubbing, cyanosis, or edema. NEURO: Alert & Oriented x4 to person, place, time, situation. Moves all ext x4. A/P Problem List: (1) SBO (small bowel obstruction) ICD Code: K56.609 - Unspecified intestinal obstruction, unspecified as to partial versus complete obstruction (2) Pancreatic cancer ICD Code: C25.9 - Malignant neoplasm of pancreas, unspecified Status: Chronic (3) Hypokalemia ICD Code: E87.6 - Hypokalemia Status: Acute (4) Leukocytosis ICD Code: D72.829 - Elevated white blood cell count, unspecified Status: Acute Assessment and Plan Suspect ileus Acute onset of abdominal pain, nausea/vomiting. CT Abd/Pelvis w/ dilatation of proximal/mid small bowel concerning for obstruction. Patient continued to have loose stools. General surgery consult appreciated. NGT removed. Stool studies negative for C. difficile and enteric pathogens and rotavirus. - regular diet per surgery. Pancreatic CA Following w/ Dr. Tolentino, currently on chemo, states pending last cycle and has plans for surgical intervention w/ Dr. Pinon. Surgery consult as above. Extensive discussion w/ patient regarding plan of care, pt would like aggressive treatment. - outpt follow-up. Hypokalemia Replaced. - s/p half-normal normal saline with 20 mEq of K. - ADAT. - monitor. Leukocytosis Stable. Afebrile and cultures are negative. - monitor. DVT Prophylaxis: SCD/Teds Discharge Planning D/c when cleared by surgery. Hopefully in 1-2 days Problem Qualifiers (1) Leukocytosis: Qualified Codes: D72.825 - Bandemia Obey Ames DO Sep 24, 2017 15:25
[2017-09-24 16:00] VITALS: BP 150/96; PULSE 68; RESP 18; TEMP 98.2; O2SAT 95
[2017-09-24 20:00] VITALS: BP 171/99; PULSE 70; PULSE 71; RESP 16; TEMP 97.9; O2SAT 96
[2017-09-25] VITALS: BP 141/86; PULSE 65; PULSE 80; RESP 16; TEMP 98.4; O2SAT 95
[2017-09-25 04:00] VITALS: BP 130/92; PULSE 66; PULSE 75; RESP 14; TEMP 98.1; O2SAT 97
[2017-09-25] MEDS: FAMOTIDINE 20 MG TAB PO SCH (04:47)
[2017-09-25] MEDS: MORPHINE SULFATE 4 MG/ML INJ IV PUSH PRN (04:51)
[2017-09-25 05:22] LABS: HEMATOCRIT 29.7 % (35.0-46.0); HEMOGLOBIN 9.6 GM/DL (11.6-15.3); MEAN CELL VOLUME 84.9 FL (80.0-100.0); MEAN CORPUSCULAR HEMOGLOBIN 27.3 PG (27.0-34.0); MEAN CORPUSCULAR HGB CONC 32.2 % (32.0-36.0); MEAN PLATELET VOLUME 8.7 FL (7.0-11.0); PLATELET COUNT 290 TH/MM3 (150-450); RED CELL DISTRIBUTION WIDTH 16.6 % (11.6-17.2)
[2017-09-25 05:47] LABS: BICARBONATE 25.6 MEQ/L (21.0-32.0); CALCIUM 7.8 MG/DL (8.5-10.1); CREATININE 0.42 MG/DL (0.50-1.00)
[2017-09-25] MEDS: CEFEPIME INJ 1,000 MG in SODIUM CHLORIDE 0.9% INJ 100 ML IV SCH (08:33)
[2017-09-25] MEDS: SODIUM CHLORIDE 0.9% FLUSH 10 ML FLUSH IV FLUSH SCH (08:34)
[2017-09-25] MEDS: DOCUSATE SODIUM 50 MG/SENNA 8.6 MG TAB PO SCH (08:34)
[2017-09-25 08:45] VITALS: PULSE 64
[2017-09-25 09:16] VITALS: BP 119/83; PULSE 78; RESP 16; TEMP 98; O2SAT 96
[2017-09-25] MEDS ORDERED: OCTREOTIDE INJ 100 MCG/ML VIAL SQ SCH (10:00)
--- NOTE | 2017-09-25 11:16 | HHI.PR ---
cc: Angel Pinon MD Subjective Subjective Notes Did well with dinner last night and breakfast today Wants to go home Objective Vitals/I&O Vital Signs Date Time Temp Pulse Resp B/P (MAP) Pulse Ox O2 Delivery O2 Flow Rate FiO2 09/25/17 09:16 98.0 78 16 119/83 (95) 96 09/22/17 02:16 Room Air 09/21/17 22:36 2.00 Labs Laboratory Tests Test 09/25/17 04:50 White Blood Count 15.0 Red Blood Count 3.50 Hemoglobin 9.6 Hematocrit 29.7 Mean Corpuscular Volume 84.9 Mean Corpuscular Hemoglobin 27.3 Mean Corpuscular Hemoglobin Concent 32.2 Red Cell Distribution Width 16.6 Platelet Count 290 Mean Platelet Volume 8.7 Blood Urea Nitrogen 4 Creatinine 0.42 Random Glucose 104 Calcium Level 7.8 Magnesium Level 2.0 Sodium Level 144 Potassium Level 3.4 Chloride Level 110 Carbon Dioxide Level 25.6 Anion Gap 8 Estimat Glomerular Filtration Rate 147 Date/Time Source Procedure Growth Status 09/22/17 00:15 Blood Peripheral Aerobic Blood Culture - Preliminary NO GROWTH IN 3 DAYS Resulted 09/22/17 00:15 Blood Peripheral Anaerobic Blood Culture - Preliminary NO GROWTH IN 3 DAYS Resulted 09/22/17 14:05 Stool Stool Giardia Antigen (JUAN ANTONIO) Pending Received Radiology Last 48 hours Impressions Chest X-Ray 09/21/172209 Signed Impressions: CONCLUSION: No active disease. [id number] in superior vena cava. No free air identified under the diaphragms. Abdomen/Pelvis CT 09/21/172209 Signed Impressions: CONCLUSION: 1. Dilatation of the proximal and mid small bowel with a suspected transition point in the right lower quadrant/pelvis concerning for small bowel obstruction . 2. Biliary stent in place. There is pneumobilia. 3. Dilatation of pancreatic duct with atrophy of the pancreas. 4. Hepatic steatosis. Cardiovascular: Regular Lungs: Clear Abdomen: Non-distended, Non-tender Extremities: No edema Narrative Exam NGT out A/P Assessment and Plan 72 year old female with abdominal pain; nausea; vomiting; distention; likely ileus -+BM -Tolerating regular diet -Will continue nonoperative treatment -GS clear for DC -Follow up with Dr. Pinon in a few weeks to discuss possible surgery Jennie Small/First Augie PINEDA Sep 25, 2017 11:16
--- NOTE | 2017-09-25 11:20 | HHI.PR ---
Subjective Remarks This is a 72-year-old female with a PMH of Pancreatic CA, COPD, HTN and Hypothyroidism who presented to the ER w/ complaints of abdominal pain, nausea, vomiting and distention x2 days. Following w/ Dr. Tolentino as outpatient, per patient she is currently on Chemo w/ plans for surgical intervention by Dr. Pinon after last cycle. States she has chronic abdominal pain, however pain has been severe x2 days. Constant, cramping, 10/10, non-radiating, associated w/ nausea/vomiting as mentioned. Denies fever or chills. On arrival , BP 129/68, HR 97, O2 sat 94% on RA, Afebrile. WBC 18.7, bands 34%. K+ 2.8. Lactic Acid 1.6. LFTs increase in comparison to previous labs from 09/16/2017. INR 1.2. CT Abdomen/Pelvis dilatation of proximal and mid small bowel with transition point concerning for small bowel obstruction, biliary stent. CXR with no acute findings, [id number]. Persistent nausea/vomiting in ER, pending NGT placement. Discussed plan of care at length with patient in addition to code status, she would like to pursue aggressive treatment and is a Full Code. 6-25 Having multiple loose stools at this time. No nausea or vomiting. No fevers or chills. No significant abdominal pain. 6-26 She reports continues to loose stools. Poor appetite and only wants to drink water. Not really tolerating clear liquid diet. No significant abdominal pain at this time. Just discomfort. 6-27 The patient was feeling well. She was tolerating liquids. She has not been having diarrhea. She does not feel weak. She is looking forward to going home soon. No acute concerns at this time. 6-28 WANTS TO GO HOME CAN DC TO HOME TODAY IF OK WITH SURGERY Discussed with RN and case management and patient Wants to go home Objective Vitals Vital Signs Date Time Temp Pulse Resp B/P (MAP) Pulse Ox O2 Delivery O2 Flow Rate FiO2 09/25/17 09:16 98.0 78 16 119/83 (95) 96 09/25/17 04:00 98.1 75 14 130/92 (105) 97 09/25/17 04:00 66 09/25/17 00:00 65 09/25/17 00:00 98.4 80 16 141/86 (104) 95 09/24/17 20:00 71 09/24/17 20:00 97.9 70 16 171/99 (123) 96 09/24/17 16:00 98.2 68 18 150/96 (114) 95 09/24/17 12:00 98.2 69 18 145/84 (104) 97 I/O 09/24/17 09/24/17 09/24/17 09/25/17 09/25/17 09/25/17 07:00 15:00 23:00 07:00 15:00 23:00 Intake Total 1120 ml 100 ml 1080 ml Output Total 1000 ml 2500 ml 300 ml Balance 120 ml 100 ml -1420 ml -300 ml Intake Oral 120 ml 980 ml IV Total 1000 ml 100 ml 100 ml Output Urine Total 1000 ml 2500 ml 300 ml # Voids 1 # Bowel Movements 1 0 Result Diagram: 09/25/17 0450 09/25/17 0450 Other Results Laboratory Tests Test 09/22/17 14:05 09/23/17 00:15 09/23/17 07:27 09/24/17 03:55 Stool C. difficile Toxin (PCR) NEGATIVE Stl C. difficile Toxin Epiderm 027 PRESUMPTIVE NEGATIVE Urine Color YELLOW Urine Turbidity HAZY Urine pH 5.0 Urine Specific [place] 1.049 Urine Protein 30 mg/dL Urine Glucose (UA) NEG mg/dL Urine Ketones TRACE mg/dL Urine Occult Blood SMALL Urine Nitrite NEG Urine Bilirubin NEG Urine Urobilinogen LESS THAN 2 mg/dL Urine Leukocyte Esterase TRACE Urine RBC 5 /hpf Urine WBC 34 /hpf Urine Squamous Epithelial Cells 5 /hpf Urine Hyaline Casts 1 /lpf Urine Mucus FEW /lpf Microscopic Urinalysis Comment CULT NOT INDICATED White Blood Count 15.5 TH/MM3 15.9 TH/MM3 Red Blood Count 3.43 MIL/MM3 3.57 MIL/MM3 Hemoglobin 9.6 GM/DL 9.9 GM/DL Hematocrit 29.1 % 30.7 % Mean Corpuscular Volume 84.8 FL 85.9 FL Mean Corpuscular Hemoglobin 27.9 PG 27.6 PG Mean Corpuscular Hemoglobin Concent 32.9 % 32.1 % Red Cell Distribution Width 16.0 % 15.6 % Platelet Count 186 TH/MM3 260 TH/MM3 Mean Platelet Volume 9.0 FL 9.1 FL CBC Comment AUTO DIFF AUTO DIFF Differential Total Cells Counted 100 100 Neutrophils % (Manual) 39 % 31 % Band Neutrophils % 23 % 33 % Lymphocytes % 16 % 15 % Monocytes % 8 % 7 % Eosinophils % 1 % 2 % Neutrophils # (Manual) 11.6 TH/MM3 11.9 TH/MM3 Metamyelocytes 4 % 9 % Myelocytes 9 % 2 % Differential Comment FINAL DIFF MANUAL FINAL DIFF MANUAL Toxic Granulation 2+ 2+ Platelet Estimate NORMAL NORMAL Platelet Morphology Comment NORMAL NORMAL Ovalocytes Blood Urea Nitrogen 13 MG/DL 6 MG/DL Creatinine 0.38 MG/DL 0.37 MG/DL Random Glucose 79 MG/DL 97 MG/DL Total Protein 5.4 GM/DL 5.5 GM/DL Albumin 2.5 GM/DL Calcium Level 7.3 MG/DL 7.3 MG/DL Alkaline Phosphatase 148 U/L Aspartate Amino Transf (AST/SGOT) 30 U/L Alanine Aminotransferase (ALT/SGPT) 38 U/L Total Bilirubin 0.5 MG/DL Sodium Level 144 MEQ/L 143 MEQ/L Potassium Level 3.5 MEQ/L 3.8 MEQ/L Chloride Level 111 MEQ/L 112 MEQ/L Carbon Dioxide Level 24.5 MEQ/L 21.0 MEQ/L Anion Gap 9 MEQ/L 10 MEQ/L Estimat Glomerular Filtration Rate 166 ML/MIN 171 ML/MIN Protein Corrected Calcium 8.2 MG/DL 8.2 MG/DL Neutrophils (%) (Auto) 72.0 % Lymphocytes (%) (Auto) 16.4 % Monocytes (%) (Auto) 10.0 % Eosinophils (%) (Auto) 1.0 % Basophils (%) (Auto) 0.6 % Neutrophils # (Auto) 11.4 TH/MM3 Lymphocytes # (Auto) 2.6 TH/MM3 Monocytes # (Auto) 1.6 TH/MM3 Eosinophils # (Auto) 0.2 TH/MM3 Basophils # (Auto) 0.1 TH/MM3 Blastocytes 1 % Test 09/25/17 04:50 White Blood Count 15.0 TH/MM3 Red Blood Count 3.50 MIL/MM3 Hemoglobin 9.6 GM/DL Hematocrit 29.7 % Mean Corpuscular Volume 84.9 FL Mean Corpuscular Hemoglobin 27.3 PG Mean Corpuscular Hemoglobin Concent 32.2 % Red Cell Distribution Width 16.6 % Platelet Count 290 TH/MM3 Mean Platelet Volume 8.7 FL Blood Urea Nitrogen 4 MG/DL Creatinine 0.42 MG/DL Random Glucose 104 MG/DL Calcium Level 7.8 MG/DL Magnesium Level 2.0 MG/DL Sodium Level 144 MEQ/L Potassium Level 3.4 MEQ/L Chloride Level 110 MEQ/L Carbon Dioxide Level 25.6 MEQ/L Anion Gap 8 MEQ/L Estimat Glomerular Filtration Rate 147 ML/MIN Imaging Last Impressions Chest X-Ray 09/21/172209 Signed Impressions: CONCLUSION: No active disease. [id number] in superior vena cava. No free air identified under the diaphragms. Abdomen/Pelvis CT 09/21/172209 Signed Impressions: CONCLUSION: 1. Dilatation of the proximal and mid small bowel with a suspected transition point in the right lower quadrant/pelvis concerning for small bowel obstruction . 2. Biliary stent in place. There is pneumobilia. 3. Dilatation of pancreatic duct with atrophy of the pancreas. 4. Hepatic steatosis. Objective Remarks GENERAL: Awake alert and oriented 3 talkative and cooperative SKIN: Warm and dry. HEAD: Atraumatic. Normocephalic. EYES: Pupils equal and round. No scleral icterus. No injection or drainage. Extraocular muscles intact ENT: No nasal bleeding or discharge. Mucous membranes pink and moist. Tongue is midline NECK: Trachea midline. No JVD. Supple CARDIOVASCULAR: Regular rate and rhythm. S1-S2 no S3 or S4 RESPIRATORY: No accessory muscle use. Clear to auscultation. Breath sounds equal bilaterally. GASTROINTESTINAL: Abdomen soft, non-tender, nondistended. Hepatic and splenic margins not palpable. MUSCULOSKELETAL: Extremities without clubbing, cyanosis, or edema. No obvious deformities. NEUROLOGICAL: Awake and alert. No obvious cranial nerve deficits. Motor grossly within normal limits. Five out of 5 muscle strength in the arms and legs. Normal speech. PSYCHIATRIC: Appropriate mood and affect; insight and judgment normal. Medications and IVs Current Medications Sodium Chloride 500 ml @ 500 mls/hr BOLUS ONCE IV Last administered on at 22:23; Start 09/21/17 at 22:15; Stop 09/21/17 at 23:14; Status DC Morphine Sulfate (Morphine Inj) 2 mg ONCE ONCE IV PUSH Last administered on at 22:24; Start 09/21/17 at 22:15; Stop 09/21/17 at 22:16; Status DC Metoclopramide HCl (Reglan Inj) 5 mg ONCE ONCE IV PUSH Last administered on at 22:25; Start 09/21/17 at 22:15; Stop 09/21/17 at 22:16; Status DC Potassium Bicarb/ Potassium Chloride (K-Lyte Cl Eff) 50 meq ONCE ONCE PO Last administered on 09/22/17at 00:20; Start 09/21/17 at 23:45; Stop 09/21/17 at 23:46; Status DC Sodium Chloride 500 ml @ 500 mls/hr BOLUS ONCE IV Last administered on at 00:23; Start 09/21/17 at 23:45; Stop 09/22/17 at 00:44; Status DC Iohexol (Omnipaque 350 Inj) 96 ml STK-MED ONCE IVCONTRAST Last administered on 09/21/17at 23:55; Start 09/21/17 at 23:55; Stop 09/21/17 at 23:56; Status DC Piperacillin Sod/ Tazobactam Sod 50 ml @ 100 mls/hr ONCE ONCE IV Last administered on 09/22/17at 00:23; Start 09/22/17 at 00:15; Stop 09/22/17 at 00:44 ; Status DC Cefepime HCl 1000 mg/Sodium Chloride 100 ml @ 200 mls/hr Q12H IV Last administered on 09/25/17at 08:33; Start 09/22/17 at 09:00 Sodium Chloride 1,000 ml @ 100 mls/hr Q10H IV Last administered on 09/22/17at 02:30; Start 09/22/17 at 00:50; Stop 09/22/17 at 11:20; Status DC Sodium Chloride (NS Flush) 2 ml UNSCH PRN IV FLUSH FLUSH AFTER USING IV ACCESS Last administered on 09/23/17at 07:16; Start 09/22/17 at 01:00 Sodium Chloride (NS Flush) 2 ml BID IV FLUSH Last administered on 09/25/17at 08: 34; Start 09/22/17 at 09:00 Metoclopramide HCl (Reglan Inj) 5 mg Q6H PRN IV PUSH NAUSEA OR VOMITING Last administered on 09/23/17at 15:10; Start 09/22/17 at 01:00 Morphine Sulfate (Morphine Inj) 1 mg Q3H PRN IV PUSH Pain 3-5; Start 09/22/17 at 01:00 Morphine Sulfate (Morphine Inj) 2 mg Q3H PRN IV PUSH Pain 6-10 Last administered on 09/25/17at 04:51; Start 09/22/17 at 01:00 Senna/Docusate Sodium (Madeline-Colace) 1 tab BID PO ; Start 09/22/17 at 09:00 Magnesium Hydroxide (Milk Of Magnesia Liq) 30 ml Q12H PRN PO Mild constipation ; Start 09/22/17 at 01:00 Sennosides (Senokot) 17.2 mg Q12H PRN PO Moderate constipation; Start 09/22/17 at 01:00 Bisacodyl (Dulcolax Supp) 10 mg DAILY PRN RECTAL SEVERE CONSITIPATION; Start at 01:00 Lactulose (Lactulose Liq) 30 ml DAILY PRN PO SEVERE CONSITIPATION; Start at 01:00 Potassium Chloride/Dextrose/ Sod Cl 1,000 ml @ 100 mls/hr Q10H IV Last administered on 09/22/17at 11:49; Start 09/22/17 at 12:18; Stop 09/22/17 at 12:18 ; Status DC Potassium Chloride/Sodium Chloride 1,000 ml @ 100 mls/hr Q10H IV Last administered on 09/23/17at 09:33; Start 09/22/17 at 13:00; Stop 09/23/17 at 11:09 ; Status DC Potassium Chloride/Sodium Chloride 1,000 ml @ 100 mls/hr Q10H IV Last administered on 09/24/17at 08:40; Start 09/23/17 at 12:07; Stop 09/24/17 at 11:55 ; Status DC Octreotide Acetate (SandoSTATIN INJ) 100 mcg Q8HR SQ Last administered on at 06:22; Start 09/23/17 at 14:00; Stop 09/24/17 at 06:01; Status DC Famotidine (Pepcid) 20 mg Q12H PO Last administered on 09/25/17at 04:47; Start 09/24/17 at 04:00 Famotidine (Pepcid) 20 mg ONCE ONCE PO Last administered on 09/23/17at 15:35; Start 09/23/17 at 16:00; Stop 09/23/17 at 16:01; Status DC Al Hydrox/Mg Hydrox/Simethicone (Mag-Al Plus Susp Liq) 30 ml Q6H PRN PO DYSPEPSIA OR HEARTBURN; Start 09/23/17 at 15:15 Octreotide Acetate (SandoSTATIN INJ) 100 mcg Q8H SQ Last administered on at 09:47; Start 09/25/17 at 10:00; Stop 09/25/17 at 18:01 A/P Problem List: (1) SBO (small bowel obstruction) ICD Code: K56.609 - Unspecified intestinal obstruction, unspecified as to partial versus complete obstruction (2) Pancreatic cancer ICD Code: C25.9 - Malignant neoplasm of pancreas, unspecified Status: Chronic (3) Hypokalemia ICD Code: E87.6 - Hypokalemia Status: Acute (4) Leukocytosis ICD Code: D72.829 - Elevated white blood cell count, unspecified Status: Acute Assessment and Plan Suspect ileus Acute onset of abdominal pain, nausea/vomiting. CT Abd/Pelvis w/ dilatation of proximal/mid small bowel concerning for obstruction. Patient continued to have loose stools. General surgery consult appreciated. NGT removed. Stool studies negative for C. difficile and enteric pathogens and rotavirus. - regular diet per surgery. Pancreatic CA Following w/ Dr. Tolentino, currently on chemo, states pending last cycle and has plans for surgical intervention w/ Dr. Pinon. Surgery consult as above. Extensive discussion w/ patient regarding plan of care, pt would like aggressive treatment. - outpt follow-up. Hypokalemia Replaced. - s/p half-normal normal saline with 20 mEq of K. - ADAT. - monitor. Leukocytosis Stable. Afebrile and cultures are negative. - monitor. DVT Prophylaxis: SCD/Teds Can be discharged to home today Discharge Planning Discharge to home today if okay with surgery Problem Qualifiers (1) Leukocytosis: Qualified Codes: D72.825 - Bandemia Landen Syed DO Sep 25, 2017 11:20
[2017-09-25] MEDS ORDERED: SUMA25TA2 PO (11:26)
[2017-09-25] MEDS ORDERED: FLUT1INH INH (11:26)
[2017-09-25] MEDS ORDERED: ONDA8TAB7 PO (11:26)
[2017-09-25] MEDS ORDERED: LACTCHW3 CHEW (11:26)
[2017-09-25] MEDS ORDERED: OMEP40CA2 PO (11:26)
[2017-09-25] MEDS ORDERED: APIX2.5T PO (11:26)
[2017-09-25] MEDS ORDERED: TIZA2TAB PO (11:26)
[2017-09-25] MEDS ORDERED: AUGM500T7 PO (11:26)
[2017-09-25] MEDS ORDERED: LOSA50TA PO (11:26)
[2017-09-25] MEDS ORDERED: MECL12.574 PO (11:26)
[2017-09-25] MEDS ORDERED: HYDR-3516 PO (11:26)
[2017-09-25] MEDS ORDERED: LEVO-86 PO (11:26)
[2017-09-25] MEDS ORDERED: SENN187 PO (11:26)
[2017-09-25] MEDS ORDERED: AMLO2.5T PO (11:26)
--- NOTE | 2017-09-25 11:29 | HHI.DS ---
Discharge Summary Admission Date Sep 22, 2017 at 00:52 Discharge Date: Sep 25, 2017 Admitting Diagnosis Bowel obstruction (1) SBO (small bowel obstruction) ICD Code: K56.609 - Unspecified intestinal obstruction, unspecified as to partial versus complete obstruction Diagnosis: Principal (2) Pancreatic cancer ICD Code: C25.9 - Malignant neoplasm of pancreas, unspecified Diagnosis: Principal Status: Chronic (3) Hypokalemia ICD Code: E87.6 - Hypokalemia Diagnosis: Secondary Status: Acute (4) Leukocytosis ICD Code: D72.829 - Elevated white blood cell count, unspecified Diagnosis: Principal Status: Acute Procedures NONE Brief History - From Admission This is a 72-year-old female with a PMH of Pancreatic CA, COPD, HTN and Hypothyroidism who presented to the ER w/ complaints of abdominal pain, nausea, vomiting and distention x2 days. Following w/ Dr. Tolentino as outpatient, per patient she is currently on Chemo w/ plans for surgical intervention by Dr. Pinon after last cycle. States she has chronic abdominal pain, however pain has been severe x2 days. Constant, cramping, 10/10, non-radiating, associated w/ nausea/vomiting as mentioned. Denies fever or chills. On arrival , BP 129/68, HR 97, O2 sat 94% on RA, Afebrile. WBC 18.7, bands 34%. K+ 2.8. Lactic Acid 1.6. LFTs increase in comparison to previous labs from 09/16/2017. INR 1.2. CT Abdomen/Pelvis dilatation of proximal and mid small bowel with transition point concerning for small bowel obstruction, biliary stent. CXR with no acute findings, [id number]. Persistent nausea/vomiting in ER, pending NGT placement. Discussed plan of care at length with patient in addition to code status, she would like to pursue aggressive treatment and is a Full Code. CBC/BMP: 09/25/17 0450 09/25/17 0450 Significant Findings Laboratory Tests Test 09/22/17 14:05 09/23/17 00:15 09/23/17 07:27 09/24/17 03:55 Urine Turbidity HAZY (CLEAR) Urine Specific [place] 1.049 (1.002-1.035) Urine Protein 30 mg/dL (NEG-TRACE) Urine Ketones TRACE mg/dL (NEG) Urine Occult Blood SMALL (NEG) Urine Leukocyte Esterase TRACE (NEG) Urine RBC 5 /hpf (0-3) Urine WBC 34 /hpf (0-5) Urine Mucus FEW /lpf (OCC) White Blood Count 15.5 TH/MM3 (4.0-11.0) 15.9 TH/MM3 (4.0-11.0) Red Blood Count 3.43 MIL/MM3 (4.00-5.30) 3.57 MIL/MM3 (4.00-5.30) Hemoglobin 9.6 GM/DL (11.6-15.3) 9.9 GM/DL (11.6-15.3) Hematocrit 29.1 % (35.0-46.0) 30.7 % (35.0-46.0) Band Neutrophils % 23 % (0-6) 33 % (0-6) Neutrophils # (Manual) 11.6 TH/MM3 (1.8-7.7) 11.9 TH/MM3 (1.8-7.7) Metamyelocytes 4 % (0-1) 9 % (0-1) Myelocytes 9 % (0-0) 2 % (0-0) Toxic Granulation 2+ (NORMAL) 2+ (NORMAL) Creatinine 0.38 MG/DL (0.50-1.00) 0.37 MG/DL (0.50-1.00) Total Protein 5.4 GM/DL (6.4-8.2) 5.5 GM/DL (6.4-8.2) Albumin 2.5 GM/DL (3.4-5.0) Calcium Level 7.3 MG/DL (8.5-10.1) 7.3 MG/DL (8.5-10.1) Alkaline Phosphatase 148 U/L (45-117) Chloride Level 111 MEQ/L (98-107) 112 MEQ/L (98-107) Protein Corrected Calcium 8.2 MG/DL (8.5-10.1) 8.2 MG/DL (8.5-10.1) Neutrophils (%) (Auto) 72.0 % (16.0-70.0) Monocytes (%) (Auto) 10.0 % (0.0-8.0) Neutrophils # (Auto) 11.4 TH/MM3 (1.8-7.7) Monocytes # (Auto) 1.6 TH/MM3 (0-0.9) Blastocytes 1 % (0-0) Blood Urea Nitrogen 6 MG/DL (7-18) Test 09/25/17 04:50 White Blood Count 15.0 TH/MM3 (4.0-11.0) Red Blood Count 3.50 MIL/MM3 (4.00-5.30) Hemoglobin 9.6 GM/DL (11.6-15.3) Hematocrit 29.7 % (35.0-46.0) Blood Urea Nitrogen 4 MG/DL (7-18) Creatinine 0.42 MG/DL (0.50-1.00) Calcium Level 7.8 MG/DL (8.5-10.1) Potassium Level 3.4 MEQ/L (3.5-5.1) Chloride Level 110 MEQ/L (98-107) Imaging Last Impressions Chest X-Ray 09/21/172209 Signed Impressions: CONCLUSION: No active disease. [id number] in superior vena cava. No free air identified under the diaphragms. Abdomen/Pelvis CT 09/21/172209 Signed Impressions: CONCLUSION: 1. Dilatation of the proximal and mid small bowel with a suspected transition point in the right lower quadrant/pelvis concerning for small bowel obstruction . 2. Biliary stent in place. There is pneumobilia. 3. Dilatation of pancreatic duct with atrophy of the pancreas. 4. Hepatic steatosis. PE at Discharge GENERAL: Awake alert and oriented 3 talkative and cooperative SKIN: Warm and dry. HEAD: Atraumatic. Normocephalic. EYES: Pupils equal and round. No scleral icterus. No injection or drainage. Extraocular muscles intact ENT: No nasal bleeding or discharge. Mucous membranes pink and moist. Tongue is midline NECK: Trachea midline. No JVD. Supple CARDIOVASCULAR: Regular rate and rhythm. S1-S2 no S3 or S4 RESPIRATORY: No accessory muscle use. Clear to auscultation. Breath sounds equal bilaterally. GASTROINTESTINAL: Abdomen soft, non-tender, nondistended. Hepatic and splenic margins not palpable. MUSCULOSKELETAL: Extremities without clubbing, cyanosis, or edema. No obvious deformities. NEUROLOGICAL: Awake and alert. No obvious cranial nerve deficits. Motor grossly within normal limits. Five out of 5 muscle strength in the arms and legs. Normal speech. PSYCHIATRIC: Appropriate mood and affect; insight and judgment normal. Hospital Course This is a 72-year-old female with a PMH of Pancreatic CA, COPD, HTN and Hypothyroidism who presented to the ER w/ complaints of abdominal pain, nausea, vomiting and distention x2 days. Following w/ Dr. Tolentino as outpatient, per patient she is currently on Chemo w/ plans for surgical intervention by Dr. Pinon after last cycle. States she has chronic abdominal pain, however pain has been severe x2 days. Constant, cramping, 10/10, non-radiating, associated w/ nausea/vomiting as mentioned. Denies fever or chills. On arrival , BP 129/68, HR 97, O2 sat 94% on RA, Afebrile. WBC 18.7, bands 34%. K+ 2.8. Lactic Acid 1.6. LFTs increase in comparison to previous labs from 09/16/2017. INR 1.2. CT Abdomen/Pelvis dilatation of proximal and mid small bowel with transition point concerning for small bowel obstruction, biliary stent. CXR with no acute findings, [id number]. Persistent nausea/vomiting in ER, pending NGT placement. Discussed plan of care at length with patient in addition to code status, she would like to pursue aggressive treatment and is a Full Code. 6-25 Having multiple loose stools at this time. No nausea or vomiting. No fevers or chills. No significant abdominal pain. 6-26 She reports continues to loose stools. Poor appetite and only wants to drink water. Not really tolerating clear liquid diet. No significant abdominal pain at this time. Just discomfort. 6-27 The patient was feeling well. She was tolerating liquids. She has not been having diarrhea. She does not feel weak. She is looking forward to going home soon. No acute concerns at this time. 6-28 WANTS TO GO HOME CAN DC TO HOME TODAY IF OK WITH SURGERY Discussed with RN and case management and patient Wants to go home Pt Condition on Discharge: Good Discharge Disposition: Discharge Home Discharge Time: > 30 minutes Discharge Instructions DIET: Follow Instructions for: As Tolerated, No Restrictions, Heart Healthy Diet Speech Therapy-Diet Recommends: Regular Activities you can perform: Regular-No Restrictions Follow up Referrals: Oncology/Hematology - 1 Week with Mahnaz Loco MD PCP Follow-up - 3-5 Days with David Hawkins MD Surgical - 2 Weeks with Angel Pinon MD New Medications: Amoxicillin-Clavulanate (Augmentin) 500-125 mg Tab 500 MG PO Q8H for Infection, #21 TAB 0 Refills Lactobacillus Acidophilus (Lactinex) 1 Chew 1 TAB CHEW TID for Nutritional Supplement, #90 TAB 0 Refills Sennosides (Senna-Lax) 8.6 Mg Tab 17.2 MG PO Q12H PRN for Moderate constipation, #120 TAB Continued Medications: Amlodipine (Amlodipine) 2.5 Mg Tab 2.5 MG PO DAILY for Blood Pressure Management, #30 TAB 0 Refills (This prescription has been renewed) Apixaban (Eliquis) 2.5 Mg Tab 2.5 MG PO BID for Blood Clot Prevention, #60 TAB 0 Refills (This prescription has been renewed) Fluticasone-Vilanterol Inh (Breo Ellipta Inh) 100-25 Mcg/Act Inh 1 PUFF INH DAILY for Shortness of Breath, #1 INHALER 0 Refills (This prescription has been renewed) Use daily at the same time. Hydrocodone-Acetaminophen (Hydrocodone-Acetaminophen) 5-325 mg Tab 1 TAB PO Q4H PRN for PAIN, #30 TAB 0 Refills (This prescription has been renewed ) Levothyroxine (Synthroid) 137 Mcg Tab 137 MCG PO DAILY for Thyroid, #30 TAB 0 Refills (This prescription has been renewed) Losartan (Losartan) 50 Mg Tab 50 MG PO BID for Blood Pressure Management, #30 TAB 0 Refills (This prescription has been renewed) Meclizine (Meclizine) 12.5 Mg Tab 12.5 MG PO TID PRN for VERTIGO, #90 TAB 0 Refills (This prescription has been renewed) Omeprazole (Omeprazole) 40 Mg Cap 40 MG PO DAILY for Reflux, #30 CAP 0 Refills (This prescription has been renewed ) Ondansetron (Ondansetron) 8 Mg Tab 8 MG PO TID PRN for Nausea/Vomiting, #30 TAB 1 Refill (This prescription has been renewed) Sumatriptan (Sumatriptan) 25 Mg Tab 25 MG PO ONCE PRN for MIGRAINE HEADACHE, #9 TAB 0 Refills (This prescription has been renewed) If a satisfactory response has not been obtained at 2 hours, a second dose may be administered Tizanidine (Tizanidine) 2 Mg Tab 2 MG PO TID PRN for MUSCLE SPASM, #90 TAB 0 Refills (This prescription has been renewed) Landen Syed DO Sep 25, 2017 11:29
[2017-09-25] MEDS ORDERED: POTASSIUM CHLORIDE 25 MEQ EFFERVESCENT TAB PO ONE (11:30)
[2017-09-25 11:56] VITALS: BP 155/87; PULSE 69; RESP 16; TEMP 98.2; O2SAT 95
[2017-09-25 11:57] VITALS: PULSE 71
--- NOTE | 2017-09-25 12:18 | PD.ONC.PN ---
Subjective Subjective Remarks Afebrile overnight. Patient resting in bed in [facility]. late entry, patient seen at 9AM. Patient very eager to go home. feeling much improved. tolerating a regular diet. Objective Data Date Time Temp Pulse Resp B/P (MAP) Pulse Ox O2 Delivery O2 Flow Rate FiO2 09/25/17 11:57 71 09/25/17 11:56 98.2 69 16 155/87 (109) 95 09/25/17 09:16 98.0 78 16 119/83 (95) 96 09/25/17 08:45 64 09/25/17 04:00 98.1 75 14 130/92 (105) 97 09/25/17 04:00 66 09/25/17 00:00 65 09/25/17 00:00 98.4 80 16 141/86 (104) 95 09/24/17 20:00 71 09/24/17 20:00 97.9 70 16 171/99 (123) 96 09/24/17 16:00 98.2 68 18 150/96 (114) 95 09/25/17 09/25/17 09/25/17 07:00 15:00 23:00 Output Total 300 ml Balance -300 ml Result Diagram: 09/25/17 0450 09/25/17 0450 Laboratory Results Laboratory Tests Test 09/25/17 04:50 White Blood Count 15.0 TH/MM3 Red Blood Count 3.50 MIL/MM3 Hemoglobin 9.6 GM/DL Hematocrit 29.7 % Mean Corpuscular Volume 84.9 FL Mean Corpuscular Hemoglobin 27.3 PG Mean Corpuscular Hemoglobin Concent 32.2 % Red Cell Distribution Width 16.6 % Platelet Count 290 TH/MM3 Mean Platelet Volume 8.7 FL Blood Urea Nitrogen 4 MG/DL Creatinine 0.42 MG/DL Random Glucose 104 MG/DL Calcium Level 7.8 MG/DL Magnesium Level 2.0 MG/DL Sodium Level 144 MEQ/L Potassium Level 3.4 MEQ/L Chloride Level 110 MEQ/L Carbon Dioxide Level 25.6 MEQ/L Anion Gap 8 MEQ/L Estimat Glomerular Filtration Rate 147 ML/MIN Culture Results Microbiology Date/Time Source Procedure Growth Status 09/22/17 14:05 Stool Stool Giardia Antigen (JUAN ANTONIO) - Final NEGATIVE - NO GIARDIA ANTIGEN DETECTE... Complete 09/22/17 14:05 Stool Stool - Final NO ENTERIC PATHOGENS DETECTED BY PCR... Complete 09/22/17 14:05 Stool Stool Rotavirus Antigen - Final NEGATIVE - ROTAVIRUS ANTIGEN IS ABSEN... Complete Objective Remarks GENERAL: Pleasant elderly female, sitting up in bed in nad. SKIN: Warm and dry. HEAD: Normocephalic. EYES: No injection or drainage. NECK: Supple, trachea midline. CARDIOVASCULAR: Regular rate and rhythm. RESPIRATORY: Breath sounds equal bilaterally. No accessory muscle use. GASTROINTESTINAL: Abdomen soft, non-tender, nondistended. EXTREMITIES: No cyanosis NEUROLOGICAL: awake and alert. normal speech. moving extremities. Assessment/Plan Problem List: (1) Pancreatic cancer ICD Codes: C25.9 - Malignant neoplasm of pancreas, unspecified Status: Chronic Plan: 09/25: oncology clear for discharge. will give an additional dose of Sandostatin as she had a few episodes of diarrhea overnight. she was encouraged to call the clinic if her symptoms persist and to follow up with Dr. Tolentino next week. --on neoadjuvant s/p 3 cycles (most recent 1 week ago) FOLFIRINOX chemotherapy. --plan was to give her 4 cycles of chemotherapy and then surgery, patient now stating she doesn't want any more chemo (2) Ileus ICD Codes: K56.7 - Ileus, unspecified Plan: --management per surgery --tolerating full diet. (3) Diarrhea ICD Codes: R19.7 - Diarrhea, unspecified Status: Acute Plan: --s/p Sandostatin x 4 doses Assessment 72y/o female with pancreatic cancer admitted with SBO. h/o COPD, diverticulosis, gastroesophageal reflux disease, Graves disease, status post radioactive iodine treatment, hypertension, hypothyroidism, migraine. Attending Statement The exam, history, and the medical decision-making described in the above note were completed with the assistance of the mid-level provider. I reviewed and agree with the findings presented. I attest that I had a [id number] encounter with the patient on the same day, and personally performed and documented my assessment and findings in the medical record. Patient started diarrhea again last night We'll give one dose of Sandostatin. No more nausea and vomiting She feels better Clear for discharge Antonia Walters Sep 25, 2017 12:18 Mahnaz Loco MD Sep 25, 2017 22:53
== END 2017-09-25 12:12 | disposition home or self-care (01) | DRG 394 ==
LOC: NEPC 21:54 → NEDA 09-22 00:52 → N06B 09-22 02:37 → HCIN 09-23 14:27
PROVIDERS: ADMIT Hospitalist; ATTEND Hospitalist
DX: K52.1 Toxic gastroenteritis and colitis (principal); C25.9 Malignant neoplasm of pancreas, unspecified; J44.9 Chronic obstructive pulmonary disease, unspecified; K56.7 Ileus, unspecified; I10 Essential (primary) hypertension; D72.825 Bandemia; E87.6 Hypokalemia; T45.1X5A Adverse effect of antineoplastic and immunosuppressive drugs, initial encounter; E03.9 Hypothyroidism, unspecified; K21.9 Gastro-esophageal reflux disease without esophagitis; Z96.651 Presence of right artificial knee joint; K57.90 Diverticulosis of intestine, part unspecified, without perforation or abscess without bleeding; R10.9 Unspecified abdominal pain; G89.29 Other chronic pain; G43.909 Migraine, unspecified, not intractable, without status migrainosus; F41.9 Anxiety disorder, unspecified; M19.90 Unspecified osteoarthritis, unspecified site; Z86.718 Personal history of other venous thrombosis and embolism; Z87.11 Personal history of peptic ulcer disease; Z87.891 Personal history of nicotine dependence; Z98.1 Arthrodesis status
CPT/HCPCS: 71045; 74177; 80048; 80053; 81001; 82550; 83605; 83690; 83735; 83880; 84155; 84484; 85007; 85027; 85610; 85730; 87040; 87329; 87425; 87493; 87506; 93005; 96361; 96365; 96375; J0692; J2270; J2354; J2543; J2765; J3480; J7030; J7040; Q9967

== ENCOUNTER 2017-11-18 14:00 | Inpatient (IN) ==
[2017-12-03] MEDS ORDERED: Metoprolol Tartrate 25 MG Tablet PO ONE (06:09)
[2017-12-03] MEDS ORDERED: Chlorhexidine Gluconate 2% 1 Pack (2 Cloths) TOPICAL ONE (06:09)
[2017-12-03] MEDS ORDERED: Ketamine Inj 50 MG/5 ML Syringe IV.PUSH ONE (06:57)
[2017-12-03 06:58] LABS: Activated Partial Thrombo Time 26.9 sec (24.3-30.1)
[2017-12-03] MEDS ORDERED: ceFAZolin 2 GM Premix Inj 2 GM/100 ML BAG IV.SIG SCH (07:00)
[2017-12-03] MEDS ORDERED: Sodium Chlor 0.9% Inj 500 ML IV.SIG SCH (07:00)
[2017-12-03] MEDS ORDERED: Bupivacaine/Epinephrine Inj 0.25% 50 ML Vial ONE (07:32)
[2017-12-03] MEDS ORDERED: Neostigmine Inj 5 MG/5 ML Syringe IV.PUSH ONE (08:00)
[2017-12-03] MEDS ORDERED: Phenylephrine/NS 1000 MCG/10ML Syringe IV.PUSH ONE (08:00)
[2017-12-03] MEDS ORDERED: Lidocaine PF 1% Inj 5 ML Syringe INFILTRATN ONE (08:00)
[2017-12-03] MEDS ORDERED: Glycopyrrolate Inj 1 MG/5 ML Syringe IV.PUSH ONE (08:00)
[2017-12-03] MEDS ORDERED: Sod Chloride 0.9% Inj 1,000 ML IV.SIG ONE (08:15)
[2017-12-03] MEDS ORDERED: Ropivacaine 0.5% PF Inj 20 ML Vial ONE (10:37)
[2017-12-03] MEDS ORDERED: fentaNYL Citrate Inj 100 MCG/2 ML Ampul ONE (11:32)
[2017-12-03] MEDS ORDERED: Morphine Inj 4 MG/ML Vial ONE (11:33)
[2017-12-03] MEDS ORDERED: HYDROmorphone PF Inj 2 MG/ML Vial ONE (11:53)
[2017-12-03] MEDS ORDERED: Naloxone Inj 0.4 MG/ML Vial IV.PUSH PRN (11:53)
[2017-12-03] MEDS ORDERED: Post-op Orders (for Pharmacy) OTHER ONE (11:53)
[2017-12-03] MEDS ORDERED: Promethazine 25 MG Supp RECTAL PRN (11:53)
[2017-12-03] MEDS ORDERED: Benzocaine 20% Oral Spray 60 ML Can OROPHARYNG PRN (11:53)
[2017-12-03] MEDS ORDERED: fentaNYL Citrate Inj 100 MCG/2 ML Ampul IV.PUSH PRN (11:58)
--- NOTE | 2017-12-03 13:03 | MP ---
cc: Angel Pinon MD DATE OF OPERATION: 12/03/2017 PREOPERATIVE DIAGNOSIS: Adenocarcinoma of the head of the pancreas, status post neoadjuvant chemotherapy. POSTOPERATIVE DIAGNOSIS: Stage IV pancreatic adenocarcinoma with peritoneal metastasis. PROCEDURE PERFORMED: 1. Diagnostic (staging) laparoscopy. 2. Exploratory laparotomy. 3. Lysis of adhesions greater than 45 minutes. 4. Peritoneal biopsy x2. 5. Kocherization of duodenum. 6. Placement of radiographic markers. ATTENDING SURGEON: Angel Pinon MD SLAB PULLER: MD Chi ANESTHESIA: General plus regional TAP block. ESTIMATED BLOOD LOSS: Less than 50 mL. COMPLICATIONS: None. FINDINGS: 1. Extensive adhesions on diagnostic staging with laparoscopy prohibiting full staging or evaluation of the abdomen. 2. Extensive adhesions from multiple previous operations mostly omental to abdominal wall lysed with cautery as well as sharply. 3. Locally advanced tumor with involvement into the root of the mesentery and uncinate process. 4. Multiple mesenteric and peritoneal metastasis along the distribution of the SMV and SMA. 5. Biopsy of pelvic tumor metastasis suspicious for metastatic adenocarcinoma on intraoperative consultation and discussion with pathologist. 6. Multiple radiographic markers placed around the head of the pancreas and the root of the mesentery surrounding the bulk of the patient's disease. INDICATIONS FOR PROCEDURE: The patient is a 72-year-old female who was diagnosed with adenocarcinoma of the head of the pancreas. The patient was status post biliary stent placement for obstructive jaundice and also received neoadjuvant chemotherapy. The patient unfortunately did have increase in her CEA after her chemotherapy. I discussed exploration with the patient and the family including risks, benefits, and alternatives, as well as the patients with risk of metastatic disease or progression or locally advanced disease. They wished to undergo exploration as there was no definitive evidence of unresectability on preoperative imaging. Dr. Mireles's presence during the operation was required as this operation was complicated and requires high level of assistance to maneuver and operate in the head of the pancreas and root of the mesentery. Dr. Mireles was present throughout the procedure actively assisted with retraction as well as dissection and hemostasis throughout the procedure. His presence was required for the safe and efficient operation and care of this patient in the operating room. DESCRIPTION OF PROCEDURE: The patient was taken to the operating room and placed in supine position and placed under general endotracheal anesthesia. The patient's abdomen was prepped and draped in sterile fashion. Timeout was performed. The patient had a very small defect at the umbilicus consistent with a hernia just a few millimeters in size. We made a horizontal incision with a 10 blade scalpel approximately 15 mm over this. We dissected down and identified this defect. We opened this with the hemostat by dilating it and took advantage of the small tiny hernia defect to enter the abdominal cavity safely. We directly visualized opening the peritoneum with S retractors and placed a 10 mm balloon trocar into the abdomen under direct visualization. We insufflated the abdomen and surveyed the abdomen with a 5 mm 30-degree camera. There is no evidence of complication from our entry. There are numerous, numerous adhesions in the left upper quadrant as well as the right upper quadrant and right lower quadrant. This very limited our view and basically we were only able to see the left lobe of the liver and adhesions during this view. We felt like this patient just wanted me to open the patient and take down adhesions, whether a Whipple was to be performed or if we were to stage the patient. We made an upper lip midline incision approximately 10 cm with the 10 blade scalpel. Bovie electrocautery was used to dissect the subcutaneous tissue and open the fascia for the whole length of the incision. An Nasir extra-large wound protector was placed. A Bookwalter retractor was placed to gain better retraction of the wound edges. We were then able to further explore the abdomen. At this point in time, we did take down adhesions approximately 45 minutes to an hour of lysis of adhesions, both with sharp blade as well as with Bovie electrocautery. These are the adhesions that include mostly omentum to the abdominal wall; however, there were extensive adhesions in the right upper quadrant due to the patient's previous cholecystectomy, which were taken down with a right angle and Bovie electrocautery tediously. Once we had freed this up again, we were then able to fully stage the abdomen and at this point in time in the upper abdomen, there was no evidence of metastatic disease or unresectability. I did elect to go ahead and continue to explore for possible resectability, although the tumor was clearly fairly large and seemed to be involving the retroperitoneum just on palpation through our incision. We did open up the gastrocolic ligament as well as Kocherized the duodenum at this time using the Bovie electrocautery and a right angle. Once we had done this, we were able to feel that the tumor was not involving the IVC or the aorta; however, this seemed to be encasing from the mesenteric vessels of the SMV as well as possibly the SMA. On further exploration, we were able to lift up the root of the mesentery from the colon and looked at the level of the ligament of Treitz. I am able to identify multiple areas of direct metastasis into the root of the mesentery and to the small bowel mesentery including down to the ileum of the mesentery. There are too numerous to count areas of disease in the mesentery. We biopsied 2 of these areas using a 15 blade scalpel on a long handle. We achieved hemostasis with the Bovie electrocautery as well as Surgicel. We just passed off one of these for frozen section, which did return suspicious, although could not confirm metastatic disease. This clearly was unresectable disease clinically. We also sent again biopsies for permanent processing as well. At this point in time, it was clear that the patient would not benefit for any further resection or Whipple procedure or attempt at resection and therefore elected to just turn towards completion. We inserted the mesentery laid in normal anatomic position. Excellent hemostasis. We irrigated out the abdomen with sterile saline as well as suctioning this clear. We placed the omentum back over the midline and closed the upper midline incision with #1 looped PDS suture. Skin was closed with charly and a JOCELYN dressing was applied. All counts were correct. No apparent complications. Myself and Dr. Mireles was scrubbed for the entire procedure and the patient tolerated the procedure well. At this point in time, prior to closure, we did place several large Hemoclips in the area of the head of the pancreas and root of the mesentery that was basically at the borders of the palpable disease to facilitate possible palliative radiation for this patient. We then again turned our attention towards closure and closed the upper midline incision with #1 looped PDS suture. We closed the skin with charly and a JOCELYN dressing was applied. The patient tolerated the procedure well and there were no apparent complications. I was present and scrubbed for the entire procedure and all counts were correct. MD CHAN Gómez/edwina , 12:14 PM , 12:31 PM
[2017-12-03] MEDS: Sod Chloride 0.9% Inj 1,000 ML IV.CONT SCH ×2 (14:06→21:00)
[2017-12-03] MEDS: HYDROmorphone PF Inj 2 MG/ML Vial IV.PUSH PRN ×2 (18:17→23:55)
[2017-12-03] MEDS: Ketorolac Inj 30 MG/ML (IVP) Vial IV.PUSH PRN (20:59)
[2017-12-04] MEDS: HYDROmorphone PF Inj 2 MG/ML Vial IV.PUSH PRN ×3 (06:42→19:59)
[2017-12-04 07:23] LABS: Baso % (Auto) 0.1 % (0.0-2.0); Hematocrit 32.1 % (35.0-46.0); Hemoglobin 10.4 gm/dL (11.6-15.3); Lymph # (Auto) 0.8 th/mm3 (1.0-4.8); Lymph % (Auto) 5.5 % (9.0-44.0); Mean Corpuscular HGB Conc 32.4 % (32.0-36.0); Mean Corpuscular Hemoglobin 30.4 pg (27.0-34.0); Mean Corpuscular Volume 93.6 fL (80.0-100.0); Mono # (Auto) 1.3 th/mm3 (0.0-0.9); Mono % (Auto) 9.2 % (0.0-8.0); Neut % (Auto) 85.2 % (16.0-70.0); Platelet Count 204 th/mm3 (150-450); Red Blood Count 3.43 mil/mm3 (4.00-5.30); Red Cell Distribution Width 13.8 % (11.6-17.2); White Blood Count 14.1 th/mm3 (4.0-11.0)
[2017-12-04 07:54] LABS: Anion Gap 9 meq/L (5-15); Blood Urea Nitrogen 10 mg/dL (7-18); Calcium 8.5 mg/dL (8.5-10.1); Carbon Dioxide 24.5 meq/L (21.0-32.0); Chloride 111 meq/L (98-107); Glomerular Filtration Rate Greater Than 89 mL/min (>89); Glucose,Random 100 mg/dL (74-106); Potassium 4.2 meq/L (3.5-5.1); Sodium 144 meq/L (136-145)
[2017-12-04] MEDS: Enoxaparin Inj 40 MG/0.4 ML Syringe SQ SCH (09:25)
[2017-12-04] MEDS: Sod Chloride 0.9% Inj 1,000 ML IV.CONT SCH ×2 (09:47→09:48)
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
--- NOTE | 2017-12-04 13:16 | P.PNGS ---
Subjective Patient reports: feels better, still having pain Physical Exam Vital signs: Vital Signs 12/03/17 15:57 12/03/17 20:00 12/04/17 00:00 Temperature 97.2 F L 98.4 F 98.1 F Pulse Rate 76 82 79 Respiratory Rate 17 17 18 Blood Pressure 148/69 H 116/67 118/59 L Pulse Oximetry 98 94 L 91 L 12/04/17 04:00 12/04/17 08:00 12/04/17 12:00 Temperature 98.1 F 97.9 F 97.4 F L Pulse Rate 77 76 72 Respiratory Rate 19 17 17 Blood Pressure 100/56 L 101/59 L 96/57 L Pulse Oximetry 91 L 84 L 91 L Intake & Output 12/03/17 12/04/17 12/04/17 18:59 06:59 18:59 Intake Total 4240 / 4240 1400 / 1400 300 / 300 Output Total 400 / 400 Balance 3840 / 3840 1400 / 1400 300 / 300 Weight 70.9 kg Intake: IV 1200 / 1200 200 / 200 300 / 300 NS Inj 1,000 ML @ 100 mls/hr IV 200 / 200 .CONT .Q10H RISHABH Rx#:[id number] Ofirmev Inj 1,000 mg In 100 ml 100 / 100 200 / 200 100 / 100 @ 400 mls/hr IV.SIG Q6H RISHABH Rx# :[id number] LR 1000 mL Inj 1,000 ML @ 30 1000 / 1000 mls/hr IV.SIG .Q24H RISHABH Rx#: [id number] Ancef 2 GM Premix Inj 2 gm In 100 / 100 100 ml @ 200 mls/hr IV.SIG PRINTING SPECIALIST RISHABH Rx#:[id number] Oral 240 / 240 1200 / 1200 Anesthesia Amount 2800 / 2800 Output: Estimated Blood Loss 50 / 50 Urine Amount (Catheter) 350 / 350 Indwelling Urethral Catheter 350 / 350 - Constitutional no acute distress - Routine Respiratory Exam Present: CTA bilaterally - Routine Cardiovascular Exam Present: RRR - Routine Abdominal Exam Present: soft Comments: JOCELYN intact - Urinary Catheter Management Indwelling Urethral Catheter Cath placed during this visit: yes, but has since been removed by the nurse Reason for continuing: Decision to DC catheter Insertion date: 12/03/17 Insertion time: 08:15 Removal date: 12/04/17 Removal time: 06:00 Assessment and Plan - Assessment (1) Stage IV adenocarcinoma of pancreas Code(s): C25.9 - Malignant neoplasm of pancreas, unspecified Status: Acute - Plan 72yo female s/p staging surgery, stable. - d/w pathology, Stage IV cancer - palliative care - advance diet as tolerated - DC georgina
[2017-12-04] MEDS: amLODIPine 5 MG Tablet PO SCH (20:00)
[2017-12-05] MEDS: HYDROmorphone PF Inj 2 MG/ML Vial IV.PUSH PRN ×4 (01:27→18:27)
[2017-12-05] MEDS: Levothyroxine 112 MCG Tablet PO SCH (05:22)
[2017-12-05] MEDS: Ketorolac Inj 30 MG/ML (IVP) Vial IV.PUSH PRN (08:18)
[2017-12-05] MEDS: Sod Chloride 0.9% Inj 1,000 ML IV.CONT SCH (10:20)
[2017-12-05] MEDS: Enoxaparin Inj 40 MG/0.4 ML Syringe SQ SCH (11:17)
--- NOTE | 2017-12-05 13:51 | P.PNGS ---
Subjective Interval history: Resting in bed No issues Still somewhat painful Physical Exam Vital signs: Vital Signs 12/04/17 16:00 12/04/17 20:12 12/05/17 00:02 Temperature 97.9 F 98.5 F 98.7 F Pulse Rate 75 81 83 Respiratory Rate 17 17 17 Blood Pressure 140/66 145/69 H 141/72 H Pulse Oximetry 90 L 92 L 92 L 12/05/17 08:00 Temperature 98.0 F Pulse Rate 79 Respiratory Rate 16 Blood Pressure 108/59 L Pulse Oximetry 94 L Intake & Output 12/04/17 12/05/17 12/05/17 18:59 06:59 18:59 Intake Total 300 / 300 580 / 580 1000 / 1000 Output Total 200 / 200 1000 / 1000 Balance 100 / 100 -420 / -420 1000 / 1000 Weight 71 kg Intake: IV 300 / 300 1000 / 1000 NS Inj 1,000 ML @ 42 mls/hr IV. 200 / 200 1000 / 1000 CONT .[id number] [facility] Rx#:[id number] Ofirmev Inj 1,000 mg In 100 ml 100 / 100 @ 400 mls/hr IV.SIG Q6H [facility] Rx# :[id number] Oral 580 / 580 Output: Urine 200 / 200 1000 / 1000 Narrative: Alert and awake Abd: JOCELYN in place with good seal; abd soft; minimally tender - Urinary Catheter Management Indwelling Urethral Catheter Cath placed during this visit: yes, but has since been removed by the nurse Reason for continuing: Decision to DC catheter Insertion date: 12/03/17 Insertion time: 08:15 Removal date: 12/04/17 Removal time: 05:00 Assessment and Plan - Assessment (1) Stage IV adenocarcinoma of pancreas Code(s): C25.9 - Malignant neoplasm of pancreas, unspecified Status: Acute Plan: 72yo female POD2 staging surgery, stable. -d/w pathology, Stage IV cancer -Palliative care following -Regular diet -DC IVF -OOB as tolerated -Pain control -Would like to talk to Dr. Tolentino about potential options -She expressed that she would rather have quality of life rather than quantity and would like to be home as soon as possible to spend time with her family and pets - Attending Attestation The exam, history, and the medical decision-making described in the above note were completed with the assistance of the mid-level provider. I reviewed and agree with the findings presented. I attest that I had a [id number] encounter with the patient on the same day, and personally performed and documented my assessment and findings in the medical record. s/p Exlap, peritoneal metastasis (Stage IV) agree with palliative care continue pain control, postop care
--- NOTE | 2017-12-05 15:05 | P.PNPAL ---
Reason for Visit Reason for visit: a. To assist with evaluation and management of symptoms including: Pain, fatigue, decreased appetite b. To assist medical decision maker(s) with: better understanding of current medical conditions; weighing benefits/burdens of medical treatment options; making medical treatment decisions. Subjective Subjective/Interval History: Patient seen today medically necessary visit to follow-up on symptoms of pain, fatigue, decreased appetite and insisting goals of medical treatment. She remains painful primarily in the abdominal area over healing surgical sites. She continues to use pillow to splint her abdomen with breathing and coughing. She has received 4.5 mg Dilaudid in the last 24 hours. She describes her maximum pain as 9/10 current pain scale 6/10 the pain is moderate to severe, located in the abdomen as an aching, grabbing sensation, intermittent , worsening with cough or activity. She states she is still fatigued and has diminished energy over what she considers to be her baseline. She states she tires easily and requires more frequent rest. She states she does not sleep as well in the hospital as she does at home discharged. She states that her primary concern is the quality of her life, versus the quantity and if she receives no strong evidence that the benefit of radiation therapy greatly exceeds the burden to her quality of life she will likely choose comfort care and hospice. Hospice contact information has been provided to her for her consideration once she makes her decision. . Family/Friend Interactions: No family at bedside. Patient states that she has several family members in route to visit her from out of the area. Her daughter Yandy is her surrogate and the patient states that she updates her daughter. . Advance Directives Living Will: Completed, but not made available Health Care Surrogate: Copy in medical record Durable Power of [employer]ident Responder: Completed, but not made available Health Care Surrogate Name and Number: Mari Campos Objective Vital Signs: Vital Signs 12/04/17 16:00 12/04/17 20:12 12/05/17 00:02 Temperature 97.9 F 98.5 F 98.7 F Pulse Rate 75 81 83 Respiratory Rate 17 17 17 Blood Pressure 140/66 145/69 H 141/72 H Pulse Oximetry 90 L 92 L 92 L 12/05/17 08:00 12/05/17 12:00 Temperature 98.0 F 98.5 F Pulse Rate 79 85 Respiratory Rate 16 18 Blood Pressure 108/59 L 159/82 H Pulse Oximetry 94 L 98 Intake & Output 12/04/17 12/05/17 12/05/17 18:59 06:59 18:59 Intake Total 300 / 300 580 / 580 1000 / 1000 Output Total 200 / 200 1000 / 1000 Balance 100 / 100 -420 / -420 1000 / 1000 Weight 156 lb 8.451 oz Intake: IV 300 / 300 1000 / 1000 NS Inj 1,000 ML @ 42 mls/hr IV. 200 / 200 1000 / 1000 CONT .[id number] [facility] Rx#:[id number] Ofirmev Inj 1,000 mg In 100 ml 100 / 100 @ 400 mls/hr IV.SIG Q6H [facility] Rx# :[id number] Oral 580 / 580 Output: Urine 200 / 200 1000 / 1000 Physical Exam: CONSTITUTIONAL/GENERAL: This is an adequately nourished patient, in no apparent distress. TUBES/LINES/DRAINS: Right chest wall port SKIN: No jaundice, rashes, or lesions. Ecchymoses on upper extremities. No wounds seen anteriorly. Skin temperature appropriate. Not diaphoretic. HEAD: Atraumatic. Normocephalic. EYES: Pupils equal and round and reactive. Extraocular motions intact. No scleral icterus. No injection or drainage. Fundi not examined. ENT: Hearing grossly normal. Nose without bleeding or purulent drainage. Throat without visible erythema, exudates, masses, or lesions. NECK: Trachea midline. Supple, nontender. No palpable thyroid enlargement or nodularity. CARDIOVASCULAR: Regular rate and rhythm without murmurs, gallops, or rubs. No JVD. Peripheral pulses symmetric. RESPIRATORY/CHEST: Symmetric, unlabored respirations. Clear to auscultation. Breath sounds equal bilaterally. No wheezes, rales, or rhonchi. GASTROINTESTINAL: Abdomen tender status post laparoscopy, surgical binder, normoactive bowel sounds, limited exam secondary to surgical dressings. GENITOURINARY: Without palpable bladder distension. MUSCULOSKELETAL: Extremities without clubbing, cyanosis, or edema. No joint tenderness or effusion noted. No calf tenderness. No mottling or clubbing. NEUROLOGICAL: Awake and alert. Motor and sensory grossly within normal limits. Follows commands. Cognitively sharp. Moves all extremities. PSYCHIATRIC: No obvious anxiety/depression. no apparent hallucinations or other psychotic thought process. . Diagnostic Tests Laboratory: Laboratory Results - last 72 hr 12/03/17 12/03/17 12/04/17 06:15 06:15 03:46 WBC 14.1 H RBC 3.43 L Hgb 10.4 L Hct 32.1 L MCV 93.6 MCH 30.4 MCHC 32.4 RDW 13.8 Plt Count 204 MPV 9.0 Neut % (Auto) 85.2 H Lymph % (Auto) 5.5 L [place] % (Auto) 9.2 H Eos % (Auto) 0.0 Baso % (Auto) 0.1 Neut # (Auto) 12.0 H Lymph # (Auto) 0.8 L [place] # (Auto) 1.3 H Eos # (Auto) 0.0 Baso # (Auto) 0.0 WBC Differential . Differential Comment Auto diff final PT 10.0 INR 1.0 APTT 26.9 Sodium Potassium Chloride Carbon Dioxide Anion Gap BUN Creatinine Estimated GFR Random Glucose Calcium Blood Type A Positive Antibody Screen Negative MTS Gel Crossmatch See Detail 12/04/17 03:49 WBC RBC Hgb Hct MCV MCH MCHC RDW Plt Count MPV Neut % (Auto) Lymph % (Auto) [place] % (Auto) Eos % (Auto) Baso % (Auto) Neut # (Auto) Lymph # (Auto) [place] # (Auto) Eos # (Auto) Baso # (Auto) WBC Differential Differential Comment PT INR APTT Sodium 144 Potassium 4.2 Chloride 111 H Carbon Dioxide 24.5 Anion Gap 9 BUN 10 Creatinine 0.46 L Estimated GFR Greater than 89 Random Glucose 100 Calcium 8.5 Blood Type Antibody Screen MTS Gel Crossmatch Result Diagrams: 12/04/17 03:46 12/04/17 03:49 Procedures: 12/03: Diagnostic laparoscopy, exploratory laparotomy peritoneal biopsy, placement of radiographic markers. . 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 She is and has 1 daughter. She lives with her significant other. Spiritual: Customs Open[employer] Ver[employer] Packer available. Legal: Healthcare surrogate naming her daughter Marie as her primary healthcare surrogate mother, Surjit as her alternate. Ethical issues impacting care: None noted. . Important Contacts: Daughter: Mari Campos Significant other: Surjit Pereira . Prognosis: Prognosis is guarded at this time. She does have known pancreatic cancer with metastasis. Final pathology is pending, however preliminary pathology was suspicious for metastatic disease. She has completed her course of chemotherapy with some reduction in the tumor burden, radiology markers have been placed during surgery by Dr. Pinon, in case oncology feels that this would provide more benefit than burden and if the patient agrees with them. At this time she remains a full CODE STATUS pending that discussion. . Code Status: Full Code Plan: PLAN: Legal decision maker: Patient is capacitated to make her own decisions at this time, however in case of her incapacitation, she has named her daughter, Mari Campos, as her primary health care surrogate and her significant other, Surjit Saravia, as her alternate. Goals: Aggressive short of no code CODE STATUS: DO NOT RESUSCITATE SYMPTOMS: * Pain: Her pain is intermittent, abdominal, slowly improving. She has hydromorphone 0.5-1 mg 4 hours as needed for pain. She has received 4.5 mg in the last 24 hours. She also has Toradol 15 mg IV every 6 hours as needed for breakthrough pain. Her last dose was last evening at 9 PM. No further recommendations at this time * Dyspnea: Dyspnea occurs intermittently, associated with abdominal discomfort. She does have a history of COPD as well as a [id number] history of tobacco use. Would recommend adding DuoNeb as needed. * Fatigue: Likely disease related. Her use of pain medications is low considering her disease and recent surgery. She feels this is more related to her mental and emotional status. [employer] Open[employer] Packer visit was offered but not accepted. She finds much relief in the company of her cats while resting at home. She will likely do better once discharged in her home surroundings. No further recommendations. Palliative care will continue to follow the patient during hospital course as condition evolves, to assist patient/decision-maker with understanding of their medical conditions, weighing benefits/burdens of treatment options, for clarification of goals of treatment. Additionally will assist with any symptoms of palliative concern. . Attestation Attestation: To help prompt me to consider important information that might be impacting today's encounter and assessment, information from prior notes written by myself or my colleagues may have been "brought forward" into today's note. My signature on this note, however, is an attestation that I personally performed the exam, history, and/or decision-making noted today, and, unless otherwise indicated, the interactions with patient, family, and staff as well as the review of records all occurred today. I also attest that the listed assessment and stated plan reflect my best clinical judgment today based on the combination of historical information, prior notes, and today's exam/ interactions. When time spent is documented, it refers only to time spent today by the signer, or if indicated, combined time spent today by collaborating physician/nurse practitioner. .
[2017-12-05] MEDS: amLODIPine 5 MG Tablet PO SCH (20:14)
[2017-12-06] MEDS: Levothyroxine 112 MCG Tablet PO SCH (05:58)
--- NOTE | 2017-12-06 08:17 | P.PNONC ---
Subjective Interval history: Ms. Eric was seen morning, I was asked to see her to discuss her diagnosis of what is now metastatic pancreas carcinoma. The patient was initially assessed to have localized pancreas cancer, she underwent neoadjuvant systemic chemotherapy consisting of FOLFIRINOX, she had a good biochemical response she had a good radiographic response. She underwent attempted surgical resection of the primary pancreatic head tumor on 12/03/2017, intraoperative findings revealed multiple metastatic deposits involving the mesentery as well as a locally advanced infiltrating mass at the root of the mesentery at the site of the pancreatic head. Dr. Pinon called me and discussed the intraoperative findings. Tissue sampling was performed and the patient was closed. I came in today to talk to the patient about goals of care going forward. Patient tells me she has done a great deal of sole searching and thinking and has elected to pursue hospice. She is looking forward to going home later today , she tells me she is at peace with her decision. I did talk to her about the possibility of her pursuing palliative systemic chemotherapy to help prolong survival. The patient tells me she does not want additional systemic therapy, she understands her survival is limited. I have offered her assistance in any way I can, she is requested prayers and pain management. She tells me she feels fairly comfortable at this time. From an oncologic standpoint she is an appropriate candidate for hospice, and is now signed up for hospice. Please contact the oncology service if we can assist in any way. Objective Vital Signs/Intake & Output: Vital Signs 12/05/17 12:00 12/05/17 16:00 12/05/17 20:32 Temperature 98.5 F 98.4 F 98.3 F Pulse Rate 85 77 83 Respiratory Rate 18 18 17 Blood Pressure 159/82 H 157/82 H 135/66 Pulse Oximetry 98 95 96 12/06/17 00:08 Temperature 98.5 F Pulse Rate 81 Respiratory Rate 16 Blood Pressure 157/76 H Pulse Oximetry 94 L Intake & Output 12/05/17 12/06/17 12/06/17 18:59 06:59 18:59 Intake Total 2500 / 2500 680 / 680 Output Total 1200 / 1200 Balance 2500 / 2500 -520 / -520 Weight 71 kg Intake: IV 1500 / 1500 NS Inj 1,000 ML @ 42 mls/hr IV. 1500 / 1500 CONT .[id number] [facility] Rx#:[id number] Oral 1000 / 1000 680 / 680 Output: Urine 1200 / 1200 Other: # Voids 8 Result Diagrams: 12/04/17 03:46 12/04/17 03:49 Laboratory Results: Laboratory Results - last 24 hr 12/03/17 06:15 MTS Gel Crossmatch See Detail Medications: Active Medications Generic Name Dose Route Start Last Admin Trade Name Freq PRN Reason Stop Dose Admin Hydrocodone Bitart/Acetaminophen 1 tab 12/05/17 15:09 12/06/17 00:57 [place] 10/325 PO 1 tab Q4H PRN Administration pain 5-10 Hydrocodone Bitart/Acetaminophen 1 tab 12/05/17 15:09 12/06/17 07:08 [place] 5/325 PO 1 tab Q4H PRN Administration pain 1-5 Amlodipine Besylate 5 mg 12/04/17 21:00 12/05/17 20:14 Norvasc PO 5 mg HS RISHABH Administration Enoxaparin Sodium 40 mg 12/04/17 10:00 12/05/17 11:17 Lovenox Inj SQ 40 mg Q24H RISHABH Administration Hydromorphone HCl 0.5 mg 12/03/17 17:53 12/05/17 18:27 Dilaudid Pf Inj IV.PUSH 0.5 mg Q4H PRN Administration PAIN SCALE 3 TO 5 Hydromorphone HCl 1 mg 12/03/17 17:53 12/05/17 05:22 Dilaudid Pf Inj IV.PUSH 1 mg Q4H PRN Administration PAIN SCALE 6 TO 10 Ketorolac Tromethamine 15 mg 12/03/17 19:30 12/05/17 08:18 Toradol Inj IV.PUSH 12/08/17 19:29 15 mg Q6H PRN Administration BREAKTHROUGH PAIN Levothyroxine Sodium 25 mcg 12/05/17 06:00 12/06/17 05:58 Synthroid PO 25 mcg DAILY@0600 RISHABH Administration Levothyroxine Sodium 112 mcg 12/05/17 06:00 12/06/17 05:58 Synthroid PO 112 mcg DAILY@0600 RISHABH Administration Losartan Potassium 50 mg 12/04/17 12:00 12/05/17 20:14 Cozaar PO 50 mg BID RISHABH Administration Ondansetron HCl 4 mg 12/03/17 11:53 12/03/17 18:17 Zofran Inj IV.PUSH 4 mg Q6H PRN Administration NAUSEA OR VOMITING Pantoprazole Sodium 40 mg 12/04/17 09:00 12/05/17 08:13 Protonix PO 40 mg DAILY RISHABH Administration Promethazine HCl 25 mg 12/03/17 11:53 12/03/17 20:54 Phenergan PO 25 mg Q6H PRN Administration NAUSEA OR VOMITING Objective Remarks: GENERAL: Well-nourished, well-developed patient. SKIN: Warm and dry. HEAD: Normocephalic. EYES: No scleral icterus. No injection or drainage. NECK: Supple, trachea midline. No JVD or lymphadenopathy. LYMPHATIC: No adenopathy. CARDIOVASCULAR: Regular rate and rhythm without murmurs. RESPIRATORY: Breath sounds equal bilaterally. No accessory muscle use. GASTROINTESTINAL: Abdomen soft, non-tender, nondistended. EXTREMITIES: No cyanosis, or edema. MUSCULOSKELETAL: Adequate muscle tone. NEUROLOGICAL: No obvious focal deficit. Awake, alert, and oriented x3. PSYCHIATRIC: Appropriate mood and affect; insight and judgment normal.
[2017-12-06 09:09] VITALS: RESP 17; TEMP 97.5
[2017-12-06] MEDS: Enoxaparin Inj 40 MG/0.4 ML Syringe SQ SCH (10:50)
[2017-12-06 13:35] VITALS: BP 152/92; PULSE 79; O2SAT 94
--- NOTE | 2017-12-30 13:09 | P.DS ---
Date of admission: 12/03/17 05:37 Primary care physician: David Hawkins MD Attending physician on discharge: Angel Pinon Anticipated date of discharge: 12/06/17 Brief History from admission: 72yo female s/p staging surgery for pancreatic cancer. DS: Diagnosis - Discharge Diagnosis (1) Stage IV adenocarcinoma of pancreas Status: Acute DS: Medications - Discharge Medications Prescriptions: hydrocodone-acetaminophen 1 tab PO Q4H PRN #18 tab PRN Reason: acute post op pain exception DS: Summary Hospital Course: This is a 72 year old female s/p staging surgery for pancreatic cancer. Found to have stage IV cancer. Patient elected for Hospice services at home. She was able to tolerate a diet and her pain was controlled using oral pain medications. - Time Spent with Patient Total time spent providing and/or coordinating discharge services: Less than 30 minutes - Quality: VTE Deep Vein Thrombosis/Pulmonary Embolism Present on Admission: No Exam Narrative: Alert and awake Abd: soft; incision c/d/i; pain controlled Results Procedures completed during hospitalization: 72 year old female s/p staging surgery, stable. Completed studies during hospitalization: Pending at discharge 12/03/17 10:33 Surgical [PTH] Routine Discharge Plan - Discharge Disposition Patient Disposition: 50 Hospice/Home - Discharge Condition Condition: Fair - Discharge Order Discharge Orders: Discharge Order (Routine); Ordered 12/06/17 Ordered By: Angel Pinon - Discharge Details Anticipated Discharge Date: 12/06/17 Discharge Comment: rx on chart - Physicians Team Primary Care Provider: David Hawkins Attending Provider: Angel Pinon Other Providers: Brenton Rubio MD ; Alexandro Mc ; Raymond Tolentino MD - Rxs /Orders / Referrals /Forms Prescriptions: New hydrocodone-acetaminophen 5-325 mg Tablet 1 tab PO Q4H PRN (Reason: acute post op pain exception ) Qty: 18 RF: 0 Continue amlodipine 2.5 mg Tablet 2.5 mg PO HS Anoro Ellipta 62.5 mcg inhaler 1 inhalation PRN PRN (Reason: Shortness Of Breath) apixaban [Eliquis] 5 mg Tablet 5 mg PO BID levothyroxine 137 mcg Tablet 137 mcg PO DAILY losartan 50 mg Tablet 50 mg PO DAILY meclizine 12.5 mg Tablet 12.5 mg PO TID PRN (Reason: Migraine Headache) omeprazole 20 mg Capsule,Delayed Release(Dr/Ec) 20 mg PO DAILY sumatriptan succinate 50 mg Tablet 50 mg PO Q2-4H PRN (Reason: Migraine Headache) Referrals: Angel Pinon MD [Physician] - See Instructions (Appt set for Dec 11 at 3:40PM ) David Hawkins MD [Primary Care Provider] - See Instructions - Discharge Instructions Patient Printed Instructions: Hydrocodone/Acetaminophen (By mouth), Exploratory Laparoscopy (DC), Exploratory Laparotomy (DC)
== END 2017-12-06 15:50 | disposition hospice, home (50) ==
LOC: HSDI 12-03 05:37 → N07 12-03 13:10
PROVIDERS: ADMIT Surgery; ATTEND Surgery